=== PATIENT | female | born 1945 | race American Indian/Alaskan Native ===

== ENCOUNTER 2017-02-09 14:56 | Outpatient (CLI) | payer MEDICARE, OTHER | END 2017-02-09 14:57 | disposition home or self-care (01) | LOC: LABHHL 14:56 | PROVIDERS: ATTEND Surgery | DX: R92.0 Mammographic microcalcification found on diagnostic imaging of breast (principal) | CPT/HCPCS: 88305; 88361 ==

== ENCOUNTER 2017-02-13 17:42 | Outpatient (CLI) | payer MEDICARE | END 2017-02-13 17:43 | disposition home or self-care (01) | LOC: LAB 17:42 | PROVIDERS: ATTEND Surgery | DX: N63 Unspecified lump in breast (principal) | CPT/HCPCS: 88305 ==

== ENCOUNTER 2017-02-16 13:07 | Outpatient (CLI) | payer MEDICARE ==
--- NOTE | 2017-02-20 11:50 | Magnetic Resonance Report ---
BILATERAL BREAST MRI WITHOUT AND WITH CONTRAST: 02/16/17 13:07:00 CLINICAL: Status post recent left stereotactic biopsy for calcifications and newly diagnosed left breast cancer. COMPARISON:02/08/17. TECHNIQUE: Axial 1.0-mm T1 without, axial high resolution 2.0-mm T2 and axial 1.0-mm dynamic Vibrant high-resolution postcontrast T1 fat saturation sequences on a 1.5 Thea magnet. The examination was performed with an 8 channel dedicated [employer]in[employer] breast coil. Post processing with CAD and subtraction was performed on an [employer] workstation. 20 cc of Multihance was injected without incident for the contrast portion of the exam. Consent was obtained prior to the administration of the contrast. FINDINGS: Right: Mild background parenchymal enhancement. No mass or suspicious enhancement. No suspicious lymph nodes. Left: Mild background parenchymal enhancement. No mass or suspicious enhancement. A retroareolar biopsy clip is located approximately 3 cm from the nipple and correlates with the recent stereotactic biopsy. A suspicious level I axillary lymph node has no central fat and measures 1.2 x 1.1 cm. There appears to be a biopsy clip at the margin. IMPRESSION: 1. A suspicious level I left axillary lymph node and otherwise negative left breast. 2. Negative right breast. RIGHT BI-RADS 1 -- Negative LEFT BI-RADS 6 -- Known Cancer
== END 2017-02-16 13:08 | disposition home or self-care (01) ==
LOC: SPVIMAG 13:07
PROVIDERS: ATTEND Surgery
DX: C50.412 Malignant neoplasm of upper-outer quadrant of left female breast (principal); N64.4 Mastodynia; R92.1 Mammographic calcification found on diagnostic imaging of breast; R60.0 Localized edema
CPT/HCPCS: A9577; C8908; 77059

== ENCOUNTER 2017-03-01 13:09 | Outpatient (CLI) | payer MEDICARE ==
--- NOTE | 2017-03-02 08:50 | PET Report ---
PET SB TO MT INITIAL: HISTORY: Staging of left breast cancer. TECHNIQUE: 15.0 millicuries F-18 FDG was administered intravenously. Noncontrast CT images and PET images were obtained from the skull base to the proximal thighs. Fused images were reviewed on a workstation. The patient's blood glucose level measured 99. COMPARISON: None. FINDINGS: BRAIN: physiologic FDG uptake in the imaged brain. NECK: physiologic FDG uptake. CHEST WALL: There is asymmetric breast tissue with the left side demonstrating increased stromal components. An approximate 2.7 cm masslike lesion in the lateral left breast is identified. Max SUV in the left breast measures up to 4.1. There is diffuse left breast skin thickening as well with max SUV measuring 3.8. MEDIASTINUM: There are multiple borderline to mildly enlarged lymph nodes measuring up to 1.8 cm within the mediastinum. A right paratracheal lymph node demonstrates a max SUV of 6.6. 2 subcarinal lymph nodes demonstrate max SUV values of 5.6 and 6.4. A right hilar lymph node demonstrates a max SUV of 7.3. LUNGS: physiologic FDG uptake. PLEURA/PERICARDIUM: physiologic FDG uptake. THORACIC LYMPH NODES: Approximately 4 or 5 borderline left axillary lymph nodes demonstrate max SUV values up to 3.1. A solitary right axillary lymph node demonstrates a max SUV of 4.1. HEPATOBILIARY: physiologic FDG uptake. Mean liver SUV measures 4.4. PANCREAS: physiologic FDG uptake. SPLEEN: physiologic FDG uptake. ADRENAL GLANDS: physiologic FDG uptake. KIDNEYS/RENAL COLLECTING SYSTEMS: physiologic FDG uptake. BOWEL/MESENTERY: physiologic FDG uptake. PELVIC VISCERA: physiologic FDG uptake. ABDOMINAL/PELVIC LYMPH NODES: physiologic FDG uptake. MUSCULOSKELETAL: physiologic FDG uptake. IMPRESSION: There is relatively diffuse increased uptake throughout the left breast and diffuse left skin thickening consistent with primary left breast cancer. This may represent inflammatory breast cancer. Metastasis to multiple thoracic lymph nodes is demonstrated including the right paratracheal chain, subcarinal chain, right hilar chain and bilateral axillary chains as outlined above. There is no abnormal activity identified beneath the diaphragm.
== END 2017-03-01 13:10 | disposition home or self-care (01) ==
LOC: PET 13:09
PROVIDERS: ATTEND Internal Medicine Hematology & Oncology
DX: C77.1 Secondary and unspecified malignant neoplasm of intrathoracic lymph nodes (principal); C50.412 Malignant neoplasm of upper-outer quadrant of left female breast; R59.9 Enlarged lymph nodes, unspecified
CPT/HCPCS: 78815; 82962; A9552

== ENCOUNTER 2017-05-01 08:32 | Outpatient (CLI) | payer MEDICARE | END 2017-05-01 08:33 | disposition home or self-care (01) | LOC: ECHO 08:32 | PROVIDERS: ATTEND Internal Medicine Hematology & Oncology | DX: I07.1 Rheumatic tricuspid insufficiency (principal); C50.912 Malignant neoplasm of unspecified site of left female breast | CPT/HCPCS: 93306 ==

== ENCOUNTER 2017-10-25 09:40 | Outpatient (CLI) | payer MEDICARE ==
--- NOTE | 2017-10-26 10:05 | PET Report ---
PET SB TO MT SUBSEQUENT: HISTORY: Restaging of left breast cancer. TECHNIQUE: 14.8 millicuries F-18 FDG was administered intravenously. Noncontrast CT images and PET images were obtained from the skull base to the proximal thighs. Fused images were reviewed on a workstation. The patient's blood glucose level measured 101. COMPARISON: 03/01/17. FINDINGS: BRAIN: physiologic FDG uptake in the imaged brain. NECK: physiologic FDG uptake. CHEST WALL: There is decreased skin thickening and stromal prominence at the left lung since the previous exam. No discrete mass on today's exam. Max SUV in the left breast measures 2.4 as opposed to 4.1 on the previous exam MEDIASTINUM: physiologic FDG uptake. LUNGS: physiologic FDG uptake. PLEURA/PERICARDIUM: physiologic FDG uptake. THORACIC LYMPH NODES: physiologic FDG uptake. Hypermetabolic left axillary lymph nodes have resolved. HEPATOBILIARY: physiologic FDG uptake. Mean liver SUV measures 3.9 as opposed to 4.3 on the previous exam. PANCREAS: physiologic FDG uptake. SPLEEN: physiologic FDG uptake. ADRENAL GLANDS: physiologic FDG uptake. KIDNEYS/RENAL COLLECTING SYSTEMS: physiologic FDG uptake. BOWEL/MESENTERY: physiologic FDG uptake. PELVIC VISCERA: physiologic FDG uptake. ABDOMINAL/PELVIC LYMPH NODES: physiologic FDG uptake. MUSCULOSKELETAL: physiologic FDG uptake. IMPRESSION: A positive response to therapy is demonstrated since 03/01/17 exam. Near-complete resolution of the left breast abnormalities with minimal left breast skin thickening remaining. No evidence for hypermetabolic visceral mass or lymph nodes. Essentially negative PET CT.
== END 2017-10-25 09:41 | disposition home or self-care (01) ==
LOC: PET 09:40
PROVIDERS: ATTEND Internal Medicine Hematology & Oncology
DX: C50.912 Malignant neoplasm of unspecified site of left female breast (principal); Z79.899 Other long term (current) drug therapy
CPT/HCPCS: 78815; 82962; A9552

== ENCOUNTER 2017-11-13 08:25 | Outpatient (CLI) | payer MEDICARE ==
--- NOTE | 2017-11-13 15:06 | Ultrasound Report ---
LEFT DIGITAL DIAGNOSTIC MAMMOGRAM with CAD and LEFT BREAST ULTRASOUND: 11/13/17 08:25:00 CLINICAL: Inflammatory left breast cancer status post chemotherapy. COMPARISON:02/08/17 FINDINGS: The overall density of the breast has decreased compared to the prior exam and there is no distinct mass at a retroareolar biopsy clip. Moderate skin thickening of the breast persists.No architectural distortion or suspicious calcifications. Ultrasound of left breast (including all four quadrants and the retroareolar area) was performed and demonstrated normal fibroglandular and fatty structures. No mass, cyst or shadowing. IMPRESSION: At least a partial mammographic response to chemotherapy with a negative ultrasound. BI-RADS CATEGORY: 6--Known Cancer ACR BI-RADS MAMMOGRAPHIC CODES: 0 = Needs additional imaging evaluation; 1 = Negative; 2 = Benign; 3 = Probably benign; 4 = Suspicious; 5 = Malignant; 6 = Known biopsy-proven malignancy COMMENT: 1. Dense breast tissue, i.e., adenosis, fibrocystic changes, etc., may obscure an underlying neoplasm. 2. Approximately 10% of cancers are not detected with mammography. 3. A negative mammography report should not delay biopsy if a clinically suspicious mass is present. COMMENT: Patient follow-up letters are generated by our [employer] application.
== END 2017-11-13 08:26 | disposition home or self-care (01) ==
LOC: SPVWC 08:25
PROVIDERS: ATTEND Surgery
DX: C50.312 Malignant neoplasm of lower-inner quadrant of left female breast (principal); R92.8 Other abnormal and inconclusive findings on diagnostic imaging of breast

== ENCOUNTER 2017-11-21 08:51 | Observation (INO) | payer MEDICARE ==
--- NOTE | 2017-11-16 11:57 | Anesthesia Consultation ---
Anesthesia Consult and Med Hx Date of service: 11/16/17 - Airway Anesthetic Teeth Evaluation: Good (upper and lower) ROM Head & Neck: Adequate (but decreased.) Mental/Hyoid Distance: Adequate Mallampati Class: Class II Intubation Access Assessment: Probably Good - Pulmonary Exam CTA: Yes - Cardiac Exam Cardiac Exam: RRR - Pre-Operative Health Status ASA Pre-Surgery Classification: ASA3 Proposed Anesthetic Plan: General - Pre-Anesthesia Comment Pre-Anesthesia Comments: h/o L THR, back surgery, R rotator cuff surgery. - Pulmonary Hx Smoking: No - Cardiovascular System Hx Hypertension: No - Central Nervous System Hx Psychiatric Problems: No - Other Systems Hx Alcohol Use: No Hx Substance Use: No Hx Cancer: Yes (B/l breast CA, nausea with chemo.) - Additional Comments Anesthesia Medical History Comments: EF went to 40% after chemo with adriamycin , was 50%before. Able to climb >2FOS, walks around her block regularly. Port still in place.
[2017-11-16 12:03] LABS: Basophils # (Auto) 0.1 K/mm3 (0.0-0.1); Basophils % (Auto) 1.8 % (0.0-1.8); Eosinophils # (Auto) 0.1 K/mm3 (0.0-0.4); Hematocrit 33.5 % (30.3-42.9); Lymphocytes # (Auto) 0.9 K/mm3 (1.2-5.4); Lymphocytes % (Auto) 20.7 % (13.4-35.0); Mean Corpuscular HGB Conc 33 % (30-34); Mean Corpuscular Hemoglobin 28 pg (28-32); Mean Corpuscular Volume 85 fl (79-97); Monocytes # (Auto) 0.4 K/mm3 (0.0-0.8); Monocytes % (Auto) 9.8 % (0.0-7.3); Platelet Count 397 K/mm3 (140-440); Red Blood Count 3.93 M/mm3 (3.65-5.03); Red Cell Distribution Width 16.4 % (13.2-15.2)
--- NOTE | 2017-11-16 14:21 | XRay Report ---
CHEST 2 VIEWS INDICATION: Presurgical evaluation. COMPARISON: None similar. FINDINGS: PA and lateral chest radiographs demonstrate normal cardiomediastinal silhouette. Well-expanded lungs with a 5 mm density projecting over the left sixth rib posteriorly, corresponding to a calcified granuloma on 10/25/2017 PET/CT. Right chest port tip along the distal SVC. Demineralized bones with multilevel spinal degenerative changes. CONCLUSION: No acute chest process with few incidental findings, as above. Thank you for the opportunity to participate in this patient's care.
[2017-11-16 14:51] LABS: Alanine Aminotransferase 14 units/L (7-56); Albumin 4.1 g/dL (3.9-5); BUN/Creatinine Ratio 18; Blood Urea Nitrogen 9 mg/dL (7-17); Calcium 9.3 mg/dL (8.4-10.2); Hemolysis Index 10
[2017-11-21] MEDS ORDERED: VANCOMYCIN/NS 1 GM/250 ML 1 GM/250 ML BAG IV SCH (09:29)
[2017-11-21] MEDS ORDERED: VANCOMYCIN/0.45 NS 1 GM/250 ML 1 GM/250 ML BAG IV NR (10:00)
--- NOTE | 2017-11-21 10:03 | Anesthesia Day of Surgery ---
Anesthesia Day of Surgery - Day of Surgery Patient Examined: Yes Patient H&P Reviewed: Yes Patient is NPO: Yes
[2017-11-21] MEDS ORDERED: DILAUDID IV PRN (10:06)
[2017-11-21] MEDS ORDERED: ZOFRAN IV PRN ×2 (10:06→15:45)
[2017-11-21] MEDS ORDERED: SUBLIMAZE IV NR (10:06)
[2017-11-21] MEDS ORDERED: XYLOCAINE MPF 2% ONE (10:09)
[2017-11-21] MEDS ORDERED: DIPRIVAN 10 MG/ML IV ONE (10:09)
[2017-11-21] MEDS ORDERED: MARCAINE 0.25% INFILTRATI ONE (10:10)
[2017-11-21] MEDS ORDERED: ZEMURON IV ONE ×2 (10:11→13:25)
[2017-11-21] MEDS ORDERED: NACL 0.9% 1000 ML 1,000 ML ONE (10:13)
[2017-11-21] MEDS ORDERED: VERSED IV NR (11:00)
[2017-11-21] MEDS ORDERED: LACTATED RINGERS 1,000 ML IV SCH ×2 (11:00→16:00)
[2017-11-21] MEDS ORDERED: SUBLIMAZE ONE (12:16)
[2017-11-21] MEDS ORDERED: NACL IRRIGATION ONE (12:22)
[2017-11-21] MEDS ORDERED: WATER FOR IRRIG STERILE IR ONE (12:22)
[2017-11-21] MEDS ORDERED: METHYLENE BLUE IRRIGATION ONE (12:22)
--- NOTE | 2017-11-21 12:28 | Operative Report ---
Operative Report Operative Report: Date of Service: November 21, 2017 Preoperative diagnosis: Left breast cancer of the central breast Postoperative diagnosis: Same Procedure: Right total mastectomy and left total mastectomy with axillary den sampling Surgeon: Cheryl Rizvi M.D. Asst.: Holly Barajas MD Anesthesia: Gen. Findings: Left breast clip present within left total mastectomy. Bilateral axillary lymph nodes sent for permanent processing to pathology. Specimen: Bilateral mastectomy and bilateral axillary lymph nodes Complications: None Drains: 2 19 Fr Estimated blood loss: Minimal Disposition: PACU in good condition Indications for operative procedure: This is a 72-year-old lady with stage IV left breast cancer of the central breast, IDCA [id number] triple negative. Recommendations were to proceed with left mastectomy to decrease disease burden given good response to neoadjuvant chemotherapy with follow-up PET scan with negative findings for metastatic disease and previous bilateral axillary chain lymphadenopathy , subcarinal lymphadenopathy and hilar lymphadenopathy with resolution. Patient wished to proceed with a bilateral masectomy. Recommendations were to remove any suspicious axillary lymph nodes given patient with known Stage IV breast cancer. Procedure in detail: Anesthesia placed a bilateral pectoral muscle block prior to going to the operating room. The patient was taken to the operating room and was placed supine. Gen. anesthesia was administered. The left nipple was injected with radioisotope. Bilateral breast were prepped and draped in the normal postoperative fashion. Timeout was performed. Typical mastectomy incision markings were made with left mastectomy marking to include scarred ecchymotic tissue. The left nipple was injected with radioisotope and methylene blue dye 1cc mixed with 1cc of saline. Attention was taken towards the right breast first. A skin incision was made with a 10 blade knife and dissection taken down to the subcutaneous tissues. First began raising of the superior flap to the level of the clavicle superiorly and posteriorly to the pectoralis muscle. Followed by raising of the medial flap to the level of the sternum and posteriorly to the pectoralis muscle. Followed by raising of the lateral flap to the level of the latissimus dorsi muscle and taken down posteriorly. Followed by raising of the inferior flap to the level of the inframammary fold taken posterior to the pectoralis muscle. The mastectomy/breast was removed from the pectoralis muscle without incident. The specimen was appropriately marked and sent to pathology. At least 3 lymph nodes were noted superficially of the axilla that were removed and sent for permanent processing given some suspicion. Hemostasis was obtained with the bovie cautery. A 19 Czech LAVON drain was placed. The subcutaneous tissues were approximated and closed using interrupted 3-0 Vicryl. The skin was then closed using a running 4-0 Monocryl followed by skin affix. Attention was taken towards the left breast. A gamma probe was inserted into the axilla to identify the sentinel lymph node location with miminal uptake noted. A skin incision was made with a 10 blade knife and dissection taken down to the subcutaneous tissues. First began raising of the superior flap to the level of the clavicle superiorly and posteriorly to the pectoralis muscle. Followed by raising of the medial flap to the level of the sternum and posteriorly to the pectoralis muscle. Followed by raising of the lateral flap to the level of the latissimus dorsi muscle and taken down posteriorly. The gamma probe was inserted into the axilla with minimal uptake noted. The axilla was examined with one suspicous node noted and sent for permanent processing. Then proceeded with raising of the inferior flap to the level of the inframammary fold taken posterior to the pectoralis muscle. The mastectomy/ breast was removed from the pectoralis muscle without incident. The specimen was appropriately marked and sent to radiology with findings of 1 breast clip present and sent to pathology. Hemostasis was obtained with the bovie cautery. A 19 Czech LAVON drain was placed. The subcutaneous tissues were approximated and closed using interrupted 3-0 Vicryl. The skin was then closed using a running 4-0 Monocryl followed by skin affix. She was awaken from anesthesia without any complications and transported to PACU in good condition.
[2017-11-21] MEDS ORDERED: METHYLENE BLUE ONE (12:30)
--- NOTE | 2017-11-21 12:30 | Short Stay Summary ---
Short Stay Documentation Date of service: 11/21/17 - History H&P: obtained from office - Allergies and Medications Current Medications: Allergies codeine Adverse Reaction (Verified 11/15/17 16:51) Vomiting,NAUSEA Penicillins Adverse Reaction (Verified 11/15/17 16:51) Hives Home Medications Medication Instructions Recorded Confirmed Last Taken Type No Known Home Medications [No 11/15/17 11/15/17 Unknown History Reported Home Medications] Active Medications Vancomycin HCl (Vancomycin/0.45 Ns 1 Gm/250 Ml) 1 gm in 250 mls @ 167.007 mls/ hr IV PREOP NR Stop: 11/21/17 13:00 Last Admin: 11/21/17 11:25 Dose: 167.007 mls/hr Lactated Ringer's (Lactated Ringers) 1,000 mls @ 42 mls/hr IV DIRECT FAWAD Midazolam HCl (Versed) 2 mg IV PREOP NR Stop: 11/21/17 23:59 Last Admin: 11/21/17 10:18 Dose: 2 mg - Brief post op/procedure progress note Date of procedure: 11/21/17 Pre-op diagnosis: Left breast cancer of the central breast Post-op diagnosis: same Procedure: Bilateral mastectomy and bilateral axillary lymph node excisional biopsy Anesthesia: GETA Findings: bilateral mastectomy, bilateral axillary lymph node excisional biopsy Surgeon: CHINO PAGAN Service Line Bus Cleaner: MARISELA MEYERS Estimated blood loss: minimal Pathology: list (bilateral mastectomy, bilateral axillary ln) Specimen disposition: to lab Condition: stable - Disposition Condition at discharge: Good Disposition: [id number]/TX-[id number] SHRT-TRM GEN HOSP IP Short Stay Discharge Plan Activity: other (no heavy lifting) Diet: regular Wound: other (may shower in 48 hours; no baths, pools or lakes) Follow up with: BHAVYA BALDERAS JR, MD [Primary Care Provider] - 7 Days CHINO PAGAN MD [Staff Physician] - 7 Days Prescriptions: traMADol [Ultram 50 MG tab] 50 mg PO Q6HR PRN #30 tablet PRN Reason: Pain
[2017-11-21] MEDS ORDERED: NEO SYNEPHRINE ONE (13:26)
[2017-11-21] MEDS ORDERED: ZOFRAN ONE (13:26)
[2017-11-21] MEDS ORDERED: NACL P/F VIAL (10 ML) 20 ML ONE (13:27)
[2017-11-21] MEDS ORDERED: BENADRYL PO PRN (15:45)
[2017-11-21] MEDS ORDERED: REGLAN PO PRN (15:45)
[2017-11-21] MEDS ORDERED: SODIUM CHLORIDE FLUSH SYRINGE 10 ML IV PRN (15:45)
[2017-11-21] MEDS ORDERED: TYLENOL PO PRN (15:45)
[2017-11-21] MEDS ORDERED: DILAUDID PO PRN (15:45)
[2017-11-21] MEDS ORDERED: MORPHINE IV PRN ×2 (15:48→18:32)
--- NOTE | 2017-11-21 16:34 | Mammography Report ---
SPECIMEN RADIOGRAPH RIGHT BREAST: 11/21/17 08:51:00 CLINICAL: Mastectomy specimen FINDINGS: A single biopsy clip is identified within the specimen. More detail, please refer to the operative report.
[2017-11-21] MEDS ORDERED: COLACE PO SCH (22:00)
--- NOTE | 2017-11-22 08:16 | Progress Note ---
Assessment and Plan This is a 72 year old lady with Stage IV left breast cancer, POD#1 bilateral mastectomy with bilateral axillary lymph node excisional biopsy. 1. Pain in good control. 2. Bilateral chest incisions healing well. 3. LAVON drain education. 4. OOB to hallway. 5. D/C planning for today. Subjective Date of service: 11/22/17 Principal diagnosis: Stage IV left breast cancer Interval history: POD#1 bilateral mastectomy and bilateral axillary lymph node excisional biopsy. No acute events overnight. Pain well controlled. Objective - Constitutional Vitals: Vital Signs - 12hr 11/21/17 11/21/17 11/22/17 22:50 22:58 00:00 Temperature 98.0 F Pulse Rate 89 Respiratory 18 20 Rate Respiratory 18 Rate [Bilateral Upper Chest] Blood Pressure 114/50 [Left] 11/22/17 04:00 Temperature 98.1 F Pulse Rate 90 Respiratory 20 Rate Respiratory Rate [Bilateral Upper Chest] Blood Pressure 104/50 [Left] General appearance: Present: no acute distress - EENT Eyes: PERRL, EOM intact ENT: hearing intact, clear oral mucosa Ears: bilateral: normal - Neck Neck: supple - Respiratory Respiratory effort: normal Respiratory: bilateral: CTA - Breasts Breasts: other (bilateral incisions healing well; skin well perfused; LAVON drains to bulb suction) - Cardiovascular Rhythm: regular Extremities: no ischemia, pulses intact, pulses symmetrical, No edema, normal temperature, normal color, Full ROM - Gastrointestinal General gastrointestinal: Present: soft, non-tender, non-distended Rectal Exam: deferred - Genitourinary Female genitourinary: deferred - Integumentary Integumentary: clear, warm, dry - Musculoskeletal Musculoskeletal: strength equal bilaterally - Neurologic Neurologic: CNII-XII intact, focal deficits, moves all extremities - Psychiatric Psychiatric: appropriate mood/affect, intact judgment & insight, memory intact, cooperative - Labs CBC & Chem 7: 11/16/17 10:40 11/16/17 10:40
[2017-11-22 11:26] VITALS: BP 125/59
== END 2017-11-22 12:26 | disposition short-term general hospital (02) ==
LOC: OR 08:51 → OB 15:45
PROVIDERS: ADMIT Surgery; ATTEND Surgery
DX: C50.112 Malignant neoplasm of central portion of left female breast (principal); C50.412 Malignant neoplasm of upper-outer quadrant of left female breast; C50.612 Malignant neoplasm of axillary tail of left female breast; C50.012 Malignant neoplasm of nipple and areola, left female breast; C50.812 Malignant neoplasm of overlapping sites of left female breast; Z92.21 Personal history of antineoplastic chemotherapy
CPT/HCPCS: 19303; 36415; 64450; 71046; 76098; 78801; 80053; 85025; 88307; 93005; 93010; 96365; 96375; A9541; G0378; J2250; J2270; J2370; J2405; J2704; J3010; J3370; J7030; Q9968; 88309

== ENCOUNTER 2018-01-11 07:38 | Outpatient (CLI) | payer MEDICARE ==
[2018-01-11] MEDS ORDERED: NACL ONE (07:53)
[2018-01-11 08:21] LABS: Blood Urea Nitrogen 9 mg/dL (7-17)
--- NOTE | 2018-01-11 11:16 | Cat Scan Report ---
FINAL REPORT EXAM: CT ANGIO CHEST HISTORY: SHORTNESS OF BREATH TECHNIQUE: CT angiography of the chest was performed. 100 cc Omnipaque 350 IV was administered. Coronal and sagittal reformatted images were obtained. PRIORS: None. FINDINGS: There is no aortic dissection seen. There are no filling defects seen within the pulmonary arterial circulation to suggest pulmonary embolism. There is right lower lobe infiltrate which is worrisome for pneumonia. There is also right lower lobe bronchial wall thickening. There is some mild left lower lobe bronchial wall thickening and minimal left basilar airspace disease. There is no pneumothorax seen. There are no pleural effusions seen. There is a borderline enlarged left hilar lymph node measuring 12 mm. There is a left AP window lymph node with punctate calcifications seen measuring 17 x 10 mm. There are several hepatic cysts seen in visualized upper abdomen. IMPRESSION: There is no pulmonary embolism or aortic dissection seen. Right lower lobe infiltrate is worrisome for pneumonia. There is also some lower lobe bronchial wall thickening which is bilateral, right greater than left. Minimal left basilar airspace disease is probably atelectasis. Borderline left hilar lymph node in AP window lymph node.
== END 2018-01-11 07:39 | disposition home or self-care (01) ==
LOC: CT 07:38
PROVIDERS: ATTEND Internal Medicine Cardiovascular Disease
DX: R06.02 Shortness of breath (principal); R91.8 Other nonspecific abnormal finding of lung field; K76.89 Other specified diseases of liver
CPT/HCPCS: 36415; 71275; 82565; 84520; Q9967

== ENCOUNTER 2018-01-16 14:19 | Inpatient (IN) | payer MEDICARE ==
[2018-01-16] MEDS ORDERED: NACL 0.9% 1000 ML 1,000 ML IV ONE (15:53)
[2018-01-16 16:24] LABS: Basophils % (Auto) 0.2 % (0.0-1.8); Eosinophils # (Auto) 0.1 K/mm3 (0.0-0.4); Eosinophils % (Auto) 0.7 % (0.0-4.3); Hematocrit 40.3 % (30.3-42.9); Lymphocytes # (Auto) 0.9 K/mm3 (1.2-5.4); Lymphocytes % (Auto) 10.4 % (13.4-35.0); Mean Corpuscular HGB Conc 32 % (30-34); Mean Corpuscular Volume 78 fl (79-97); Monocytes # (Auto) 0.5 K/mm3 (0.0-0.8); Platelet Count 426 K/mm3 (140-440); Red Blood Count 5.16 M/mm3 (3.65-5.03); Red Cell Distribution Width 15.5 % (13.2-15.2)
[2018-01-16 16:25] LABS: Mean Corpuscular Hemoglobin 25 pg (28-32)
[2018-01-16] MEDS ORDERED: LEVAQUIN 750MG/150ML 750 MG/150 ML BAG IV ONE (16:29)
[2018-01-16] MEDS ORDERED: ATROVENT IH ONE (16:29)
[2018-01-16] MEDS ORDERED: PROVENTIL IH ONE (16:29)
[2018-01-16 16:35] LABS: INR 0.97 (0.87-1.13)
[2018-01-16 16:36] LABS: Partial Thromboplastin Time 22.4 Sec. (24.2-36.6)
[2018-01-16 16:38] LABS: Creatine Kinase MB 2.9 ng/mL (0.0-4.0)
[2018-01-16 16:39] LABS: Alanine Aminotransferase 21 units/L (7-56); Albumin 3.9 g/dL (3.9-5); BUN/Creatinine Ratio 40; Blood Urea Nitrogen 20 mg/dL (7-17); Calcium 9.9 mg/dL (8.4-10.2); Hemolysis Index 10
[2018-01-16] MEDS ORDERED: TESSALON PERLES PO ONE (16:39)
--- NOTE | 2018-01-16 16:56 | Emergency Department Report ---
ED Shortness of Breath HPI - General Chief Complaint: Dyspnea/Respdistress Stated Complaint: SOB Time Seen by Provider: 01/16/18 15:52 Source: patient Mode of arrival: Wheelchair Limitations: No Limitations - History of Present Illness Initial Comments: 72-year-old female with a history of breast cancer treated with chemotherapy in the past and advised lateral mastectomy in October presents to the hospital complaining of a cough and shortness of breath 3 weeks. Patient sent for Dr. Lira's office with tachypnea and tachycardia which was apparent in triage. Patient complains of intermittent wheezing and shortness of breath and cough productive of white sputum. No fever reported. Patient had outpatient CT angiogram chest January 11 showing no pulmonary embolism or dissection. Positive right lower lobe infiltrate worrisome for pneumonia. Also lower lobe bronchial wall thickening which is bilateral, right greater than left. Minimal left basilar airspace disease is probably atelectasis. Patient has not been started on any antibiotics. Denies any COPD or asthma and has no current treatment with steroids or bronchial dilators. Patient is pretty much in remission from her breast cancer but has been scheduled for radiation therapy. Pain = 0 - Related Data Previous Rx's Medication Instructions Recorded Last Taken Type traMADol [Ultram 50 MG tab] 50 mg PO Q6HR PRN #30 tablet 11/21/17 Unknown Rx Allergies Allergy/AdvReac Type Severity Reaction Status Date / Time codeine AdvReac Vomiting,NA Verified 01/16/18 14:27 USEA Penicillins AdvReac Hives Verified 01/16/18 14:27 ED Review of Systems ROS: Stated complaint: SOB Other details as noted in HPI Comment: All other systems reviewed and negative ED Past Medical Hx - Past Medical History Hx Hypertension: No Hx Congestive Heart Failure: No Hx Diabetes: No Hx of Cancer: Yes (breast ca) Hx Asthma: No Hx COPD: No Hx HIV: No - Surgical History Additional Surgical History: thom mastectomy - Social History Smoking Status: Never Smoker Substance Use Type: None - Medications Home Medications: Home Medications Medication Instructions Recorded Confirmed Last Taken Type traMADol [Ultram 50 MG tab] 50 mg PO Q6HR PRN #30 tablet 11/21/17 Unknown Rx ED Physical Exam - General Limitations: No Limitations - Other Other exam information: General: No limitations, patient is alert in no acute distress Head exam: Atraumatic, normocephalic Eyes exam: Normal appearance ENT: Moist mucous membrane, normal oropharynx Neck exam: Normal inspection, full range of motion, no meningismus nontender Respiratory exam: Frequent cough, bilateral wheezing, mild tachypnea Cardiovascular: Mild tachycardia. Right upper chest port Abdomen: Soft, nondistended, and nontender, with normal bowel sounds, no rebound, or guarding Extremity: Full range of motion normal inspection no deformity, no calf tenderness or edema Back: Normal Inspection, full range of motion, no tenderness Neurologic: Alert, oriented x3, cranial nerves intact, no motor or sensory deficit Psychiatric: normal affect, normal mood Skin: Warm, dry, intact ED Course Vital Signs 01/16/18 14:27 Temperature 98.4 F Pulse Rate 133 H Respiratory 24 Rate Blood Pressure 133/62 O2 Sat by Pulse 97 Oximetry ED Medical Decision Making - Lab Data Result diagrams: 01/16/18 16:04 01/16/18 16:04 Lab Results 01/16/18 01/16/18 01/16/18 Range/Units 16:04 16:04 16:04 WBC 8.6 (4.5-11.0) K/mm3 RBC 5.16 H (3.65-5.03) M/mm3 Hgb 13.0 (10.1-14.3) gm/dl Hct 40.3 (30.3-42.9) % MCV 78 L (79-97) fl MCH 25 L (28-32) pg MCHC 32 (30-34) % RDW 15.5 H (13.2-15.2) % Plt Count 426 (140-440) K/mm3 Lymph % (Auto) 10.4 L (13.4-35.0) % [place] % (Auto) 6.0 (0.0-7.3) % Eos % (Auto) 0.7 (0.0-4.3) % Baso % (Auto) 0.2 (0.0-1.8) % Lymph # 0.9 L (1.2-5.4) K/mm3 [place] # 0.5 (0.0-0.8) K/mm3 Eos # 0.1 (0.0-0.4) K/mm3 Baso # 0.0 (0.0-0.1) K/mm3 Seg Neutrophils % 82.7 H (40.0-70.0) % Seg Neutrophils # 7.1 (1.8-7.7) K/mm3 PT (12.2-14.9) Sec. INR (0.87-1.13) APTT (24.2-36.6) Sec. VBG pH (7.320-7.420) Sodium 134 L (137-145) mmol/L Potassium 3.9 (3.6-5.0) mmol/L Chloride 89.7 L (98-107) mmol/L Carbon Dioxide 24 (22-30) mmol/L Anion Gap 24 mmol/L BUN 20 H (7-17) mg/dL Creatinine 0.5 L (0.7-1.2) mg/dL Estimated GFR > 60 ml/min BUN/Creatinine Ratio 40 % Glucose 99 (65-100) mg/dL Lactic Acid 1.50 (0.7-2.0) mmol/L Calcium 9.9 (8.4-10.2) mg/dL Total Bilirubin 0.50 (0.1-1.2) mg/dL AST 31 (5-40) units/L ALT 21 (7-56) units/L Alkaline Phosphatase 76 (35-129) units/L Total Creatine Kinase 127 (30-135) units/L CK-MB (CK-2) 2.9 (0.0-4.0) ng/mL CK-MB (CK-2) Rel Index 2.2 (0-4) Troponin T < 0.010 (0.00-0.029) ng/mL NT-Pro-B Natriuret Pep 59.64 (0-900) pg/mL Total Protein 7.6 (6.3-8.2) g/dL Albumin 3.9 (3.9-5) g/dL Albumin/Globulin Ratio 1.1 % 01/16/18 01/16/18 Range/Units 16:04 16:04 WBC (4.5-11.0) K/mm3 RBC (3.65-5.03) M/mm3 Hgb (10.1-14.3) gm/dl Hct (30.3-42.9) % MCV (79-97) fl MCH (28-32) pg MCHC (30-34) % RDW (13.2-15.2) % Plt Count (140-440) K/mm3 Lymph % (Auto) (13.4-35.0) % [place] % (Auto) (0.0-7.3) % Eos % (Auto) (0.0-4.3) % Baso % (Auto) (0.0-1.8) % Lymph # (1.2-5.4) K/mm3 [place] # (0.0-0.8) K/mm3 Eos # (0.0-0.4) K/mm3 Baso # (0.0-0.1) K/mm3 Seg Neutrophils % (40.0-70.0) % Seg Neutrophils # (1.8-7.7) K/mm3 PT 13.4 (12.2-14.9) Sec. INR 0.97 (0.87-1.13) APTT 22.4 L (24.2-36.6) Sec. VBG pH 7.416 (7.320-7.420) Sodium (137-145) mmol/L Potassium (3.6-5.0) mmol/L Chloride (98-107) mmol/L Carbon Dioxide (22-30) mmol/L Anion Gap mmol/L BUN (7-17) mg/dL Creatinine (0.7-1.2) mg/dL Estimated GFR ml/min BUN/Creatinine Ratio % Glucose (65-100) mg/dL Lactic Acid (0.7-2.0) mmol/L Calcium (8.4-10.2) mg/dL Total Bilirubin (0.1-1.2) mg/dL AST (5-40) units/L ALT (7-56) units/L Alkaline Phosphatase (35-129) units/L Total Creatine Kinase (30-135) units/L CK-MB (CK-2) (0.0-4.0) ng/mL CK-MB (CK-2) Rel Index (0-4) Troponin T (0.00-0.029) ng/mL NT-Pro-B Natriuret Pep (0-900) pg/mL Total Protein (6.3-8.2) g/dL Albumin (3.9-5) g/dL Albumin/Globulin Ratio % - EKG Data -: EKG Interpreted by Me (biatrial enlargement) EKG shows normal: sinus rhythm Rate: tachycardia (123) - Radiology Data Radiology results: report reviewed read by radiologist cxr: IMPRESSION: Dense right lower lobe infiltrate. Patchy left basal infiltrate. Right chemo port. Normal heart size. - Medical Decision Making Patient will be admitted to the hospital for treatment of pneumonia which appears to be bilateral basilar chest x-ray. Tessalon Perles, Levaquin, albuterol, Atrovent, and IV Solu-Medrol initiated. Recent outpatient CT angiogram negative for PE - Differential Diagnosis pneumonia, bronchitis, CHF, PE Critical Care Time: No Critical care attestation.: If time is entered above; I have spent that time in minutes in the direct care of this critically ill patient, excluding procedure time. ED Disposition Clinical Impression: Pneumonia, Wheezing, Breast cancer Disposition: DC-09 OP ADMIT IP TO THIS HOSP Is pt being admited?: Yes Condition: Stable Time of Disposition: 17:03 (Dr Soto/hosp)
--- NOTE | 2018-01-16 16:58 | XRay Report ---
FINAL REPORT EXAM: XR CHEST 1V AP HISTORY: sob TECHNIQUE: AP chest x-ray Comparison: CTA chest 01/11/2018 FINDINGS: Right IJ chemo port is present. Heart size is normal. Dense right basilar infiltrate shown on the previous CTA to be right lower lobe. Minimal infiltrate may be developing in the left lung base. There are calcified AP window lymph nodes. IMPRESSION: Dense right lower lobe infiltrate. Patchy left basal infiltrate. Right chemo port. Normal heart size.
--- NOTE | 2018-01-16 18:09 | History and Physical Report ---
History of Present Illness Chief complaint: I cant breathe History of present illness: 72 YO Female with Breast Cancer S/P Bilateral Mastectomy presents to ED for evaluation. Pt states that she has experienced productive cough and shortness of breath for the past 3 weeks, with worsening symptoms over the past 2 days. Pt seen and evaluated by PCP and was found to have evidence of Pneumonia, and was instructed to seek further care and evaluation at [facility]. Pt seen and evaluated in ED and found to have RLL Pneumonia as well as Acute Respiratory Failure. Pt initiated on Pneumonia protocol, as well as supplemental oxygen. Pt denies fever, chills, chest pain, BRBPR, unintentional weight loss, night sweats, hemoptysis. Pt admitted to medical floor. Past History Past Medical History: cancer Past Surgical History: mastectomy Social history: . denies: smoking, alcohol abuse, prescription drug abuse Family history: no significant family history (reviewed) Medications and Allergies Allergies Allergy/AdvReac Type Severity Reaction Status Date / Time Penicillins AdvReac Unknown Hives Verified 01/16/18 18:24 codeine AdvReac Vomiting,NA Verified 01/16/18 14:27 USEA Home Medications Medication Instructions Recorded Confirmed Last Taken Type No Known Home Medications [No 01/16/18 01/16/18 Unknown History Reported Home Medications] Review of Systems Constitutional: no weight loss, no weight gain, no fever, no chills Breasts: no change in shape, no swelling, no mass Cardiovascular: no chest pain, no orthopnea, no syncope, no lightheadedness Respiratory: cough with sputum, shortness of breath Gastrointestinal: no nausea, no vomiting, no diarrhea, no constipation Genitourinary Female: no pelvic pain, no flank pain, no menorrhagia, no dysuria , no urinary frequency, no urgency Rectal: no pain, no incontinence, no bleeding Musculoskeletal: no neck pain, no shooting arm pain, no arm numbness/tingling, no low back pain, no shooting leg pain, no leg numbness/tingling Integumentary: no rash, no pruritis, no redness, no sores, no wounds, no jaundice Neurological: no transient paralysis, no paralysis, no weakness, no parathesias , no numbness, no tingling, no seizures, no syncope Psychiatric: no anxiety, no memory loss, no change in sleep habits, no sleep disturbances, no insomnia, no hypersomnia, no change in appetite, no change in libido Endocrine: no cold intolerance, no heat intolerance, no polyphagia, no polyuria , no nocturia, no excessive sweating Hematologic/Lymphatic: no easy bruising, no easy bleeding, no lymphadenopathy, no lymphedema Allergic/Immunologic: no urticaria, no allergic rhinitis, no wheezing, no persistent infections, no anaphylaxis, no angioedema Exam - Constitutional Vitals: Temp Pulse Resp BP Pulse Ox 98.4 F 108 H 18 133/62 97 01/16/18 14:27 01/16/18 18:07 01/16/18 18:07 01/16/18 14:27 01/16/18 14:27 General appearance: Present: mild distress - EENT Eyes: Present: PERRL ENT: hearing intact, clear oral mucosa - Neck Neck: Present: supple, normal ROM - Respiratory Respiratory effort: normal Respiratory: right: diminished, rhonchi - Cardiovascular Heart Sounds: Present: S1 & S2. Absent: rub, click - Extremities Extremities: pulses symmetrical, No edema Peripheral Pulses: within normal limits - Abdominal General gastrointestinal: Present: soft, non-tender, non-distended, normal bowel sounds Female genitourinary: Present: normal - Integumentary Integumentary: Present: clear, warm, dry - Musculoskeletal Musculoskeletal: generalized weakness - Psychiatric Psychiatric: appropriate mood/affect, intact judgment & insight - Neurologic Neurologic: CNII-XII intact, moves all extremities Results - Labs CBC & Chem 7: 01/16/18 16:04 01/16/18 16:04 Labs: Abnormal lab results 01/16/18 01/16/18 01/16/18 Range/Units 16:04 16:04 16:04 RBC 5.16 H (3.65-5.03) M/mm3 MCV 78 L (79-97) fl MCH 25 L (28-32) pg RDW 15.5 H (13.2-15.2) % Lymph % (Auto) 10.4 L (13.4-35.0) % Lymph # 0.9 L (1.2-5.4) K/mm3 Seg Neutrophils % 82.7 H (40.0-70.0) % APTT 22.4 L (24.2-36.6) Sec. Sodium 134 L (137-145) mmol/L Chloride 89.7 L (98-107) mmol/L BUN 20 H (7-17) mg/dL Creatinine 0.5 L (0.7-1.2) mg/dL Assessment and Plan - Patient Problems (1) Pneumonia Current Visit: Yes Status: Acute Qualifiers: Laterality: right Lung location: lower lobe of lung Plan to address problem: IV Antibiotics, IVF resuscitation, monitor uop q shift, supplemental oxygen, blood cultures, aspiration precautions, nebulizer therapy, (2) Breast cancer Current Visit: Yes Status: Acute Qualifiers: Laterality: unspecified laterality Plan to address problem: Supportive care, outpatient Oncology F/U for radiation therapy (3) DVT prophylaxis Current Visit: Yes Status: Acute Plan to address problem: SCD to BLE while in bed
[2018-01-16] MEDS ORDERED: TYLENOL PO PRN (18:11)
[2018-01-16] MEDS ORDERED: SODIUM CHLORIDE FLUSH SYRINGE 10 ML IV PRN (18:11)
[2018-01-16] MEDS ORDERED: ZOFRAN IV PRN (18:11)
[2018-01-16] MEDS ORDERED: HYDROMET PO PRN (18:14)
[2018-01-17] MEDS: LEVAQUIN 750MG/150ML 750 MG/150 ML BAG IV SCH (08:59)
[2018-01-17] MEDS: SODIUM CHLORIDE FLUSH SYRINGE 10 ML IV SCH ×3 (09:00→21:20)
[2018-01-17] MEDS ORDERED: PROVENTIL IH SCH (09:00)
--- NOTE | 2018-01-17 09:09 | Progress Note ---
<DOUGLAS YODER - Last Filed: 01/17/18 15:41> Assessment and Plan Assessment and plan: 72 YO Female with Breast Cancer S/P Bilateral Mastectomy presents to ED for evaluation. Pt states that she has experienced productive cough and shortness of breath for the past 3 weeks, with worsening symptoms over the past 2 days. Pneumonia Continue IV Antibiotics, supplemental oxygen as needed, follow blood cultures, aspiration precautions, nebulizer therapy every 4 hours initiated Dysphagia GI consulted, swallow eval ordered Breast cancer Supportive care, outpatient Oncology F/U DVT prophylaxis SCD to BLE while in bed History Interval history: Patient seen and examined. During my exam she's continuously coughing, very weak cough, productive of clear phlegm. She states that whenever she tries to swallow it triggers her cough. She currently tolerating liquids. I reviewed her labs and nursing notes. Hospitalist Physical - Physical exam Narrative exam: General appearance: Present: Mild distress, well-nourished - EENT Eyes: Present: PERRL, EOM intact ENT: hearing intact, clear oral mucosa - Neck Present: supple, normal ROM - Respiratory Respiratory effort: normal Respiratory: bilateral: Wheezes and rhonchi - Cardiovascular Rhythm: regular Heart Sounds: Present: S1 & S2 - Extremities Extremities: no ischemia, No edema - Abdominal General gastrointestinal: soft, non-tender, non-distended - Integumentary Integumentary: Present: clear, warm, dry - Psychiatric Psychiatric: appropriate mood/affect, intact judgment & insight, cooperative - Neurologic Neurologic: CNII-XII intact, moves all extremities - Constitutional Vitals: Temp Pulse Resp BP Pulse Ox 97.7 F 96 H 16 126/70 98 01/17/18 07:26 01/17/18 08:39 01/17/18 08:39 01/17/18 07:26 01/17/18 09:00 Results - Labs CBC & Chem 7: 01/16/18 16:04 01/16/18 16:04 Labs: Laboratory Last Values WBC 8.6 K/mm3 (4.5-11.0) 01/16/18 16:04 RBC 5.16 M/mm3 (3.65-5.03) H 01/16/18 16:04 Hgb 13.0 gm/dl (10.1-14.3) 01/16/18 16:04 Hct 40.3 % (30.3-42.9) 01/16/18 16:04 MCV 78 fl (79-97) L 01/16/18 16:04 MCH 25 pg (28-32) L 01/16/18 16:04 MCHC 32 % (30-34) 01/16/18 16:04 RDW 15.5 % (13.2-15.2) H 01/16/18 16:04 Plt Count 426 K/mm3 (140-440) 01/16/18 16:04 Lymph % (Auto) 10.4 % (13.4-35.0) L 01/16/18 16:04 [place] % (Auto) 6.0 % (0.0-7.3) 01/16/18 16:04 Eos % (Auto) 0.7 % (0.0-4.3) 01/16/18 16:04 Baso % (Auto) 0.2 % (0.0-1.8) 01/16/18 16:04 Lymph # 0.9 K/mm3 (1.2-5.4) L 01/16/18 16:04 [place] # 0.5 K/mm3 (0.0-0.8) 01/16/18 16:04 Eos # 0.1 K/mm3 (0.0-0.4) 01/16/18 16:04 Baso # 0.0 K/mm3 (0.0-0.1) 01/16/18 16:04 Seg Neutrophils % 82.7 % (40.0-70.0) H 01/16/18 16:04 Seg Neutrophils # 7.1 K/mm3 (1.8-7.7) 01/16/18 16:04 PT 13.4 Sec. (12.2-14.9) 01/16/18 16:04 INR 0.97 (0.87-1.13) 01/16/18 16:04 APTT 22.4 Sec. (24.2-36.6) L 01/16/18 16:04 VBG pH 7.416 (7.320-7.420) 01/16/18 16:04 Sodium 134 mmol/L (137-145) L 01/16/18 16:04 Potassium 3.9 mmol/L (3.6-5.0) 01/16/18 16:04 Chloride 89.7 mmol/L (98-107) L 01/16/18 16:04 Carbon Dioxide 24 mmol/L (22-30) 01/16/18 16:04 Anion Gap 24 mmol/L 01/16/18 16:04 BUN 20 mg/dL (7-17) H 01/16/18 16:04 Creatinine 0.5 mg/dL (0.7-1.2) L 01/16/18 16:04 Estimated GFR > 60 ml/min 01/16/18 16:04 BUN/Creatinine Ratio 40 % 01/16/18 16:04 Glucose 99 mg/dL (65-100) 01/16/18 16:04 Lactic Acid 1.50 mmol/L (0.7-2.0) 01/16/18 16:04 Calcium 9.9 mg/dL (8.4-10.2) 01/16/18 16:04 Total Bilirubin 0.50 mg/dL (0.1-1.2) 01/16/18 16:04 AST 31 units/L (5-40) 01/16/18 16:04 ALT 21 units/L (7-56) 01/16/18 16:04 Alkaline Phosphatase 76 units/L (35-129) 01/16/18 16:04 Total Creatine Kinase 127 units/L (30-135) 01/16/18 16:04 CK-MB (CK-2) 2.9 ng/mL (0.0-4.0) 01/16/18 16:04 CK-MB (CK-2) Rel Index 2.2 (0-4) 01/16/18 16:04 Troponin T < 0.010 ng/mL (0.00-0.029) 01/16/18 16:04 NT-Pro-B Natriuret Pep 59.64 pg/mL (0-900) 01/16/18 16:04 Total Protein 7.6 g/dL (6.3-8.2) 01/16/18 16:04 Albumin 3.9 g/dL (3.9-5) 01/16/18 16:04 Albumin/Globulin Ratio 1.1 % 01/16/18 16:04 <EDY PARISI M - Last Filed: 01/18/18 07:22> Assessment and Plan Assessment and plan: I saw and evaluated the patient. I agree with the findings and the plan of care as documented in the Nurse Practitioner's~note, with the following corrections and additions. GI consult placed, patient failed swallow evaluation. Hospitalist Physical - Constitutional Vitals: Temp Pulse Resp BP Pulse Ox 97.9 F 112 H 16 139/70 97 01/18/18 07:09 01/18/18 07:09 01/18/18 07:09 01/18/18 07:09 01/18/18 07:09 Results - Labs CBC & Chem 7: 01/16/18 16:04 01/16/18 16:04 Labs: Laboratory Last Values WBC 8.6 K/mm3 (4.5-11.0) 01/16/18 16:04 RBC 5.16 M/mm3 (3.65-5.03) H 01/16/18 16:04 Hgb 13.0 gm/dl (10.1-14.3) 01/16/18 16:04 Hct 40.3 % (30.3-42.9) 01/16/18 16:04 MCV 78 fl (79-97) L 01/16/18 16:04 MCH 25 pg (28-32) L 01/16/18 16:04 MCHC 32 % (30-34) 01/16/18 16:04 RDW 15.5 % (13.2-15.2) H 01/16/18 16:04 Plt Count 426 K/mm3 (140-440) 01/16/18 16:04 Lymph % (Auto) 10.4 % (13.4-35.0) L 01/16/18 16:04 [place] % (Auto) 6.0 % (0.0-7.3) 01/16/18 16:04 Eos % (Auto) 0.7 % (0.0-4.3) 01/16/18 16:04 Baso % (Auto) 0.2 % (0.0-1.8) 01/16/18 16:04 Lymph # 0.9 K/mm3 (1.2-5.4) L 01/16/18 16:04 [place] # 0.5 K/mm3 (0.0-0.8) 01/16/18 16:04 Eos # 0.1 K/mm3 (0.0-0.4) 01/16/18 16:04 Baso # 0.0 K/mm3 (0.0-0.1) 01/16/18 16:04 Seg Neutrophils % 82.7 % (40.0-70.0) H 01/16/18 16:04 Seg Neutrophils # 7.1 K/mm3 (1.8-7.7) 01/16/18 16:04 PT 13.4 Sec. (12.2-14.9) 01/16/18 16:04 INR 0.97 (0.87-1.13) 01/16/18 16:04 APTT 22.4 Sec. (24.2-36.6) L 01/16/18 16:04 VBG pH 7.416 (7.320-7.420) 01/16/18 16:04 Sodium 134 mmol/L (137-145) L 01/16/18 16:04 Potassium 3.9 mmol/L (3.6-5.0) 01/16/18 16:04 Chloride 89.7 mmol/L (98-107) L 01/16/18 16:04 Carbon Dioxide 24 mmol/L (22-30) 01/16/18 16:04 Anion Gap 24 mmol/L 01/16/18 16:04 BUN 20 mg/dL (7-17) H 01/16/18 16:04 Creatinine 0.5 mg/dL (0.7-1.2) L 01/16/18 16:04 Estimated GFR > 60 ml/min 01/16/18 16:04 BUN/Creatinine Ratio 40 % 01/16/18 16:04 Glucose 99 mg/dL (65-100) 01/16/18 16:04 Lactic Acid 1.50 mmol/L (0.7-2.0) 01/16/18 16:04 Calcium 9.9 mg/dL (8.4-10.2) 01/16/18 16:04 Total Bilirubin 0.50 mg/dL (0.1-1.2) 01/16/18 16:04 AST 31 units/L (5-40) 01/16/18 16:04 ALT 21 units/L (7-56) 01/16/18 16:04 Alkaline Phosphatase 76 units/L (35-129) 01/16/18 16:04 Total Creatine Kinase 127 units/L (30-135) 01/16/18 16:04 CK-MB (CK-2) 2.9 ng/mL (0.0-4.0) 01/16/18 16:04 CK-MB (CK-2) Rel Index 2.2 (0-4) 01/16/18 16:04 Troponin T < 0.010 ng/mL (0.00-0.029) 01/16/18 16:04 NT-Pro-B Natriuret Pep 59.64 pg/mL (0-900) 01/16/18 16:04 Total Protein 7.6 g/dL (6.3-8.2) 01/16/18 16:04 Albumin 3.9 g/dL (3.9-5) 01/16/18 16:04 Albumin/Globulin Ratio 1.1 % 01/16/18 16:04
[2018-01-17] MEDS ORDERED: GUAIFENESIN DM SYRUP PO PRN (12:04)
[2018-01-17] MEDS: PROTONIX PO SCH (12:39)
[2018-01-17] MEDS: PROVENTIL IH SCH ×2 (16:29→20:51)
[2018-01-17] MEDS: D5/0.45NS 1,000 ML IV SCH (16:31)
[2018-01-18] MEDS: PROVENTIL IH SCH ×6 (00:42→19:35)
[2018-01-18] MEDS: LEVAQUIN 750MG/150ML 750 MG/150 ML BAG IV SCH (09:31)
[2018-01-18] MEDS: PROTONIX PO SCH (09:31)
[2018-01-18] MEDS: SODIUM CHLORIDE FLUSH SYRINGE 10 ML IV SCH ×2 (09:32→23:45)
--- NOTE | 2018-01-18 10:16 | Progress Note ---
Assessment and Plan Assessment and plan: 72 YO Female with Breast Cancer S/P Bilateral Mastectomy presents to ED for evaluation. Pt states that she has experienced productive cough and shortness of breath for the past 3 weeks, with worsening symptoms over the past 2 days. Pneumonia Continue IV Antibiotics, supplemental oxygen as needed, follow blood cultures, aspiration precautions, continue nebulizer therapy every 4 hours Dysphagia GI following, Failed MBS, TPN for now per GI team, MRI for CVA workup rec by oncol Breast cancer Supportive care, outpatient Oncology F/U DVT prophylaxis SCD to BLE while in bed History Interval history: Patient seen and examined with at bedside. She's still coughing, very weak cough, productive of clear phlegm. I reviewed her labs and nursing notes. Hospitalist Physical - Physical exam Narrative exam: General appearance: Present: No acute distress, well-nourished - EENT Eyes: Present: PERRL, EOM intact ENT: hearing intact, clear oral mucosa - Neck Present: supple, normal ROM - Respiratory Respiratory effort: normal Respiratory: bilateral: Rhonchi - Cardiovascular Rhythm: regular Heart Sounds: Present: S1 & S2 - Extremities Extremities: no ischemia, No edema - Abdominal General gastrointestinal: soft, non-tender, non-distended - Integumentary Integumentary: Present: clear, warm, dry - Psychiatric Psychiatric: appropriate mood/affect, intact judgment & insight, cooperative - Neurologic Neurologic: CNII-XII intact, moves all extremities - Constitutional Vitals: Temp Pulse Resp BP Pulse Ox 97.9 F 123 H 20 139/70 100 01/18/18 07:09 01/18/18 09:01 01/18/18 09:01 01/18/18 07:09 01/18/18 08:51 Results - Labs CBC & Chem 7: 01/16/18 16:04 01/16/18 16:04 Labs: Laboratory Last Values WBC 8.6 K/mm3 (4.5-11.0) 01/16/18 16:04 RBC 5.16 M/mm3 (3.65-5.03) H 01/16/18 16:04 Hgb 13.0 gm/dl (10.1-14.3) 01/16/18 16:04 Hct 40.3 % (30.3-42.9) 01/16/18 16:04 MCV 78 fl (79-97) L 01/16/18 16:04 MCH 25 pg (28-32) L 01/16/18 16:04 MCHC 32 % (30-34) 01/16/18 16:04 RDW 15.5 % (13.2-15.2) H 01/16/18 16:04 Plt Count 426 K/mm3 (140-440) 01/16/18 16:04 Lymph % (Auto) 10.4 % (13.4-35.0) L 01/16/18 16:04 [place] % (Auto) 6.0 % (0.0-7.3) 01/16/18 16:04 Eos % (Auto) 0.7 % (0.0-4.3) 01/16/18 16:04 Baso % (Auto) 0.2 % (0.0-1.8) 01/16/18 16:04 Lymph # 0.9 K/mm3 (1.2-5.4) L 01/16/18 16:04 [place] # 0.5 K/mm3 (0.0-0.8) 01/16/18 16:04 Eos # 0.1 K/mm3 (0.0-0.4) 01/16/18 16:04 Baso # 0.0 K/mm3 (0.0-0.1) 01/16/18 16:04 Seg Neutrophils % 82.7 % (40.0-70.0) H 01/16/18 16:04 Seg Neutrophils # 7.1 K/mm3 (1.8-7.7) 01/16/18 16:04 PT 13.4 Sec. (12.2-14.9) 01/16/18 16:04 INR 0.97 (0.87-1.13) 01/16/18 16:04 APTT 22.4 Sec. (24.2-36.6) L 01/16/18 16:04 VBG pH 7.416 (7.320-7.420) 01/16/18 16:04 Sodium 134 mmol/L (137-145) L 01/16/18 16:04 Potassium 3.9 mmol/L (3.6-5.0) 01/16/18 16:04 Chloride 89.7 mmol/L (98-107) L 01/16/18 16:04 Carbon Dioxide 24 mmol/L (22-30) 01/16/18 16:04 Anion Gap 24 mmol/L 01/16/18 16:04 BUN 20 mg/dL (7-17) H 01/16/18 16:04 Creatinine 0.5 mg/dL (0.7-1.2) L 01/16/18 16:04 Estimated GFR > 60 ml/min 01/16/18 16:04 BUN/Creatinine Ratio 40 % 01/16/18 16:04 Glucose 99 mg/dL (65-100) 01/16/18 16:04 Lactic Acid 1.50 mmol/L (0.7-2.0) 01/16/18 16:04 Calcium 9.9 mg/dL (8.4-10.2) 01/16/18 16:04 Total Bilirubin 0.50 mg/dL (0.1-1.2) 01/16/18 16:04 AST 31 units/L (5-40) 01/16/18 16:04 ALT 21 units/L (7-56) 01/16/18 16:04 Alkaline Phosphatase 76 units/L (35-129) 01/16/18 16:04 Total Creatine Kinase 127 units/L (30-135) 01/16/18 16:04 CK-MB (CK-2) 2.9 ng/mL (0.0-4.0) 01/16/18 16:04 CK-MB (CK-2) Rel Index 2.2 (0-4) 01/16/18 16:04 Troponin T < 0.010 ng/mL (0.00-0.029) 01/16/18 16:04 NT-Pro-B Natriuret Pep 59.64 pg/mL (0-900) 01/16/18 16:04 Total Protein 7.6 g/dL (6.3-8.2) 01/16/18 16:04 Albumin 3.9 g/dL (3.9-5) 01/16/18 16:04 Albumin/Globulin Ratio 1.1 % 01/16/18 16:04
--- NOTE | 2018-01-18 10:40 | Gastroenterology Consultation ---
History of Present Illness - Reason for Consult Consult date: 01/18/18 dysphagia Requesting physician: EDY PARISI - History of Present Illness Patient is a 72 y/o female with PMH of breast cancer (s/p bilateral mastectomy 10/2017 with adjuvant chemo) who was admitted for pneumonia with acute respiratory failure. GI has been consulted for dysphagia. This morning pt was resting in bed with c/o a continued cough and mild SOB. Currently receiving O2 via NC. Respirations unlabored with no acute distress. She admits to dysphagia with solids and occasional liquids for the last couple of weeks with an associated wt loss of approximately 9-10lbs. Denies CP, odynophagia, heartburn, regurgitation, abd pain, N/V, or LGI symptoms. No previous EGD. No Fhx of GI cancers. Past History Past Medical History: cancer Past Surgical History: mastectomy Social history: . denies: smoking, alcohol abuse, prescription drug abuse Family history: no significant family history (reviewed) Medications and Allergies Allergies Allergy/AdvReac Type Severity Reaction Status Date / Time Penicillins AdvReac Unknown Hives Verified 01/16/18 18:24 codeine AdvReac Vomiting,NA Verified 01/16/18 14:27 USEA Home Medications Medication Instructions Recorded Confirmed Last Taken Type No Known Home Medications [No 01/16/18 01/16/18 Unknown History Reported Home Medications] Active Meds: Active Medications Acetaminophen (Tylenol) 650 mg PO Q4H PRN PRN Reason: Pain MILD(1-3)/Fever >100.5/VALLECILLO Albuterol (Proventil) 2.5 mg IH Q4HRT FAWAD Last Admin: 01/18/18 08:52 Dose: 2.5 mg Guaifenesin (Guaifenesin Dm Syrup) 10 ml PO Q4H PRN PRN Reason: Cough Hydrocodone Bit/Homatropine Methylb (Hydromet) 10 ml PO Q6H PRN PRN Reason: Cough Levofloxacin/Dextrose (Levaquin 750mg/150ml) 750 mg in 150 mls @ 100 mls/hr IV Q24HR FAWAD; Protocol Last Admin: 01/18/18 09:31 Dose: 100 mls/hr Dextrose/Sodium Chloride (D5/0.45ns) 1,000 mls @ 100 mls/hr IV DIRECT FAWAD Last Admin: 01/17/18 16:31 Dose: 100 mls/hr Ondansetron HCl (Zofran) 4 mg IV Q8H PRN PRN Reason: Nausea And Vomiting Pantoprazole Sodium (Protonix) 40 mg PO QDAY [facility] Last Admin: 01/18/18 09:31 Dose: Not Given Sodium Chloride (Sodium Chloride Flush Syringe 10 Ml) 10 ml IV BID [facility] Last Admin: 01/18/18 09:32 Dose: Not Given Sodium Chloride (Sodium Chloride Flush Syringe 10 Ml) 10 ml IV PRN PRN PRN Reason: LINE FLUSH Review of Systems - Review of Systems All systems: negative Gastrointestinal: other (dysphagia) Exam - Constitutional Vital Signs: Temp Pulse Resp BP Pulse Ox 97.9 F 123 H 20 139/70 100 01/18/18 07:09 01/18/18 09:01 01/18/18 09:01 01/18/18 07:09 01/18/18 08:51 General appearance: no acute distress - EENT Eyes: PERRL, EOM intact ENT: hearing intact - Neck Neck: supple, normal ROM - Respiratory Respiratory: bilateral: rhonchi - Cardiovascular Rhythm: other (tachycardia) Heart Sounds: Present: S1 & S2 - Gastrointestinal General gastrointestinal: Present: soft, non-tender, non-distended, normal bowel sounds - Neurologic Neurological: alert and oriented x3 - Labs CBC & Chem 7: 01/16/18 16:04 01/16/18 16:04 Assessment and Plan 1.dysphagia -etiology unclear -speech following with MBS pending for today -will consider EGD based on results, once pt's respiratory status is improved -continue supportive care -will follow
--- NOTE | 2018-01-18 10:47 | Fluoroscopy Report ---
Modified barium swallow with video fluoroscopy: History: Dysphagia. Findings: Severe cervical spondylosis. Transit of liquid and semisolid was delayed in the pharynx with suspected minimal aspiration. No anatomic obstruction. Additional information will be provided by speech therapist. Impression: Findings as detailed above.
[2018-01-18] MEDS: DECADRON IV SCH ×2 (14:36→23:44)
[2018-01-18 17:16] LABS: Alanine Aminotransferase 23 units/L (7-56); Albumin 3.7 g/dL (3.9-5); BUN/Creatinine Ratio 30; Blood Urea Nitrogen 12 mg/dL (7-17); Calcium 9.6 mg/dL (8.4-10.2); Hemolysis Index 2
[2018-01-18] MEDS: D5/0.45NS 1,000 ML IV SCH (23:45)
[2018-01-19] MEDS ORDERED: NACL ONE (00:41)
[2018-01-19] MEDS: PROVENTIL IH SCH ×7 (00:41→23:13)
[2018-01-19] MEDS: DECADRON IV SCH ×3 (05:24→21:08)
[2018-01-19] MEDS: SODIUM CHLORIDE FLUSH SYRINGE 10 ML IV SCH ×2 (09:49→21:08)
[2018-01-19 10:32] LABS: BUN/Creatinine Ratio 25; Blood Urea Nitrogen 10 mg/dL (7-17); Calcium 9.7 mg/dL (8.4-10.2); Hemolysis Index 4
[2018-01-19] MEDS: PROTONIX PO SCH (10:51)
[2018-01-19] MEDS: LEVAQUIN 750MG/150ML 750 MG/150 ML BAG IV SCH (11:00)
--- NOTE | 2018-01-19 11:09 | Gastroenterology Progress Note ---
Assessment and Plan GI: pt w/ h/o breast cancer now w/ dysphagia and dysphonia - awaiting MRI brain to r/o metastatic disease - possible paraneoplastic syndrome - continue syeroids at this time, d/c based on progress and MRI results - continue NPO and IV nutrition - consider PEG based on above - will follow Subjective Date of service: 01/19/18 Interval history: - reports some improved shortness of breath. Reports still w problems swallowing Objective - Constitutional Vitals: Temp Pulse Resp BP Pulse Ox 98.7 F 98 H 18 119/71 100 01/19/18 07:25 01/19/18 09:46 01/19/18 09:46 01/19/18 07:25 01/19/18 09:45 General appearance: no acute distress - EENT Eyes: PERRL - Respiratory Respiratory: bilateral: CTA - Gastrointestinal General gastrointestinal: Present: soft, non-tender, non-distended - Labs CBC & Chem 7: 01/16/18 16:04 01/19/18 09:15 Labs: Laboratory Results - last 24 hr 01/18/18 01/18/18 01/19/18 16:23 16:23 09:15 Sodium 140 137 Potassium 3.3 L 3.5 L Chloride 96.7 L 93.3 L Carbon Dioxide 29 28 Anion Gap 18 19 BUN 12 10 Creatinine 0.4 L 0.4 L Estimated GFR > 60 > 60 BUN/Creatinine Ratio 30 25 Glucose 156 H 139 H Calcium 9.6 9.7 Total Bilirubin 0.40 AST 30 ALT 23 Alkaline Phosphatase 69 Total Protein 7.0 Albumin 3.7 L Albumin/Globulin Ratio 1.1 TSH 2.070
--- NOTE | 2018-01-19 13:33 | Progress Note ---
Assessment and Plan Assessment and plan: 72 YO Female with Breast Cancer S/P Bilateral Mastectomy presents to ED for evaluation. Pt states that she has experienced productive cough and shortness of breath for the past 3 weeks, with worsening symptoms over the past 2 days. Patient has difficulty of swallowing. Bilateral Pneumonia - Chest x-ray showed bilateral infiltrates - Patient is on IV antibiotic, oxygen support, breathing treatment Dysphagia - Patient failed swallow evaluation - MRI head ordered to evaluate for possible brain metastases, reading is pending - patient is NPO, on IV fluids - GI consult appreciated Breast cancer -Supportive care, outpatient Oncology F/U DVT prophylaxis - lovenox History Interval history: Patient was seen and evaluated this morning, patient still has cough and dysphonia, no fever chills. Hospitalist Physical - Physical exam Narrative exam: Not in cardiopulmonary distress. The patient appeared well nourished and normally developed. Vital signs as documented. Head exam is unremarkable. No scleral icterus . Neck is without jugular venous distension, thyromegaly, or carotid bruits. Lungs are clear to auscultation. Cardiac exam reveals regular rate and Rhythm. First and second heart sounds normal. No murmurs, rubs or gallops. Abdominal exam reveals normal bowel sounds, no masses, no organomegaly and no aortic enlargement. Extremities are nonedematous and both femoral and pedal pulses are normal. FLOOR GRINDER: Alert and oriented 3. No focal weakness. - Constitutional Vitals: Temp Pulse Resp BP Pulse Ox 98.7 F 94 H 24 119/71 100 01/19/18 07:25 01/19/18 10:00 01/19/18 10:00 01/19/18 07:25 01/19/18 09:45 General appearance: Present: mild distress Results - Labs CBC & Chem 7: 01/16/18 16:04 01/19/18 09:15 Labs: Laboratory Last Values WBC 8.6 K/mm3 (4.5-11.0) 01/16/18 16:04 RBC 5.16 M/mm3 (3.65-5.03) H 01/16/18 16:04 Hgb 13.0 gm/dl (10.1-14.3) 01/16/18 16:04 Hct 40.3 % (30.3-42.9) 01/16/18 16:04 MCV 78 fl (79-97) L 01/16/18 16:04 MCH 25 pg (28-32) L 01/16/18 16:04 MCHC 32 % (30-34) 01/16/18 16:04 RDW 15.5 % (13.2-15.2) H 01/16/18 16:04 Plt Count 426 K/mm3 (140-440) 01/16/18 16:04 Lymph % (Auto) 10.4 % (13.4-35.0) L 01/16/18 16:04 [place] % (Auto) 6.0 % (0.0-7.3) 01/16/18 16:04 Eos % (Auto) 0.7 % (0.0-4.3) 01/16/18 16:04 Baso % (Auto) 0.2 % (0.0-1.8) 01/16/18 16:04 Lymph # 0.9 K/mm3 (1.2-5.4) L 01/16/18 16:04 [place] # 0.5 K/mm3 (0.0-0.8) 01/16/18 16:04 Eos # 0.1 K/mm3 (0.0-0.4) 01/16/18 16:04 Baso # 0.0 K/mm3 (0.0-0.1) 01/16/18 16:04 Seg Neutrophils % 82.7 % (40.0-70.0) H 01/16/18 16:04 Seg Neutrophils # 7.1 K/mm3 (1.8-7.7) 01/16/18 16:04 PT 13.4 Sec. (12.2-14.9) 01/16/18 16:04 INR 0.97 (0.87-1.13) 01/16/18 16:04 APTT 22.4 Sec. (24.2-36.6) L 01/16/18 16:04 VBG pH 7.416 (7.320-7.420) 01/16/18 16:04 Sodium 137 mmol/L (137-145) 01/19/18 09:15 Potassium 3.5 mmol/L (3.6-5.0) L 01/19/18 09:15 Chloride 93.3 mmol/L (98-107) L 01/19/18 09:15 Carbon Dioxide 28 mmol/L (22-30) 01/19/18 09:15 Anion Gap 19 mmol/L 01/19/18 09:15 BUN 10 mg/dL (7-17) 01/19/18 09:15 Creatinine 0.4 mg/dL (0.7-1.2) L 01/19/18 09:15 Estimated GFR > 60 ml/min 01/19/18 09:15 BUN/Creatinine Ratio 25 % 01/19/18 09:15 Glucose 139 mg/dL (65-100) H 01/19/18 09:15 Lactic Acid 1.50 mmol/L (0.7-2.0) 01/16/18 16:04 Calcium 9.7 mg/dL (8.4-10.2) 01/19/18 09:15 Total Bilirubin 0.40 mg/dL (0.1-1.2) 01/18/18 16:23 AST 30 units/L (5-40) 01/18/18 16:23 ALT 23 units/L (7-56) 01/18/18 16:23 Alkaline Phosphatase 69 units/L (35-129) 01/18/18 16:23 Total Creatine Kinase 127 units/L (30-135) 01/16/18 16:04 CK-MB (CK-2) 2.9 ng/mL (0.0-4.0) 01/16/18 16:04 CK-MB (CK-2) Rel Index 2.2 (0-4) 01/16/18 16:04 Troponin T < 0.010 ng/mL (0.00-0.029) 01/16/18 16:04 NT-Pro-B Natriuret Pep 59.64 pg/mL (0-900) 01/16/18 16:04 Total Protein 7.0 g/dL (6.3-8.2) 01/18/18 16:23 Albumin 3.7 g/dL (3.9-5) L 01/18/18 16:23 Albumin/Globulin Ratio 1.1 % 01/18/18 16:23 TSH 2.070 mlU/mL (0.270-4.200) 01/18/18 16:23
--- NOTE | 2018-01-19 14:37 | Magnetic Resonance Report ---
FINAL REPORT EXAM: MR BRAIN WO/W CON HISTORY: possible brain lesions TECHNIQUE: Multiplanar multisequence brain MR imaging before and after IV contrast. PRIORS: None. FINDINGS: Nonspecific irregularly marginated lesion is noted in the inferior posterior aspect of the right cerebellar hemisphere. It appears to be intra-axial. It is T1 and T2 isointense with brain. It heterogeneously enhances with IV contrast. On postcontrast images, lesion size is 18 x 32 mm in the axial plane. Sagittal dimension is 18 mm. There is vasogenic edema in the adjacent right cerebellar hemisphere. The included air filled sinuses contain no acute fluid level. The brain is without hemorrhage or acute infarct. There are no areas of brain restricted diffusion to suggest an acute ischemic infarct. There is no midline shift. The ventricles and sulci are age-appropriate. IMPRESSION: Nonspecific mass in right cerebellar hemisphere with adjacent vasogenic edema may be a primary brain neoplasm. Differential includes a metastatic lesion in the appropriate clinical setting. No definite restricted diffusion to suggest infarct
[2018-01-19] MEDS: KCL 10MEQ/100ML 10 MEQ/100 ML BAG IV SCH ×3 (14:50→23:13)
[2018-01-19] MEDS: [UNRECOGNIZED DRUG - OTHER] IV SCH (21:08)
[2018-01-19] MEDS: DEXTROSE IV SCH (21:08)
[2018-01-19] MEDS: LOVENOX SUB-Q SCH (21:09)
[2018-01-20] MEDS: PROVENTIL IH SCH ×5 (04:35→20:00)
[2018-01-20] MEDS: DECADRON IV SCH ×3 (05:53→21:03)
[2018-01-20 06:09] LABS: Hematocrit 36.2 % (30.3-42.9); Hemoglobin 11.9 gm/dl (10.1-14.3); Mean Corpuscular HGB Conc 33 % (30-34); Mean Corpuscular Volume 77 fl (79-97); Platelet Count 328 K/mm3 (140-440); Red Blood Count 4.69 M/mm3 (3.65-5.03); Red Cell Distribution Width 15.6 % (13.2-15.2)
[2018-01-20 06:33] LABS: Mean Corpuscular Hemoglobin 25 pg (28-32)
[2018-01-20 06:40] LABS: BUN/Creatinine Ratio 30; Blood Urea Nitrogen 12 mg/dL (7-17); Calcium 9.5 mg/dL (8.4-10.2); Hemolysis Index 0
[2018-01-20 06:49] LABS: Basophils % (Manual) 0 % (0.0-1.8); Eosinophils % (Manual) 0 % (0.0-4.3); Total Cells Counted 100
[2018-01-20 06:52] LABS: Target Cells Rare
[2018-01-20 06:53] LABS: Platelet Estimate Consistent w Auto
[2018-01-20] MEDS: LEVAQUIN 750MG/150ML 750 MG/150 ML BAG IV SCH (09:34)
[2018-01-20] MEDS: SODIUM CHLORIDE FLUSH SYRINGE 10 ML IV SCH ×2 (09:34→21:04)
[2018-01-20] MEDS: PROTONIX PO SCH (09:35)
[2018-01-20] MEDS: [UNRECOGNIZED DRUG - OTHER] IV SCH (09:43)
[2018-01-20] MEDS: DEXTROSE IV SCH (09:43)
--- NOTE | 2018-01-20 12:13 | Progress Note ---
Assessment and Plan Assessment and plan: 72 YO Female with Breast Cancer S/P Bilateral Mastectomy presents to ED for evaluation. Pt states that she has experienced productive cough and shortness of breath for the past 3 weeks, with worsening symptoms over the past 2 days. Patient has difficulty of swallowing. Bilateral Pneumonia - Chest x-ray showed bilateral infiltrates - Patient is on IV antibiotic, oxygen support, breathing treatment Brain mass, primary Vs metastases - MRI showed edema in the right cerebellar hemisphere - Oncology consult placed Dysphagia due to brain mass - Patient failed swallow evaluation - patient is NPO, on IV fluids - GI consult appreciated Breast cancer -Supportive care, outpatient Oncology F/U DVT prophylaxis - lovenox History Interval history: Patient was seen and evaluated this morning, patient has a lot of cough and sputum production, patient has difficulty with expectorating phlegm. Hospitalist Physical - Physical exam Narrative exam: Not in cardiopulmonary distress. The patient appeared well nourished and normally developed. Vital signs as documented. Head exam is unremarkable. No scleral icterus . Neck is without jugular venous distension, thyromegaly, or carotid bruits. Lungs are clear to auscultation. Cardiac exam reveals regular rate and Rhythm. First and second heart sounds normal. No murmurs, rubs or gallops. Abdominal exam reveals normal bowel sounds, no masses, no organomegaly and no aortic enlargement. Extremities are nonedematous and both femoral and pedal pulses are normal. TRUCK CHAUFFEUR: Alert and oriented 3. No focal weakness. - Constitutional Vitals: Temp Pulse Resp BP Pulse Ox 97.5 F L 104 H 24 122/64 100 01/20/18 07:34 01/20/18 10:54 01/20/18 10:00 01/20/18 07:34 01/20/18 10:00 General appearance: Present: mild distress Results - Labs CBC & Chem 7: 01/20/18 Unknown 01/20/18 Unknown Labs: Laboratory Last Values WBC 11.6 K/mm3 (4.5-11.0) H 01/20/18 Unknown RBC 4.69 M/mm3 (3.65-5.03) 01/20/18 Unknown Hgb 11.9 gm/dl (10.1-14.3) 01/20/18 Unknown Hct 36.2 % (30.3-42.9) 01/20/18 Unknown MCV 77 fl (79-97) L 01/20/18 Unknown MCH 25 pg (28-32) L 01/20/18 Unknown MCHC 33 % (30-34) 01/20/18 Unknown RDW 15.6 % (13.2-15.2) H 01/20/18 Unknown Plt Count 328 K/mm3 (140-440) 01/20/18 Unknown Lymph % (Auto) 10.4 % (13.4-35.0) L 01/16/18 16:04 [place] % (Auto) 6.0 % (0.0-7.3) 01/16/18 16:04 Eos % (Auto) 0.7 % (0.0-4.3) 01/16/18 16:04 Baso % (Auto) 0.2 % (0.0-1.8) 01/16/18 16:04 Lymph # 0.9 K/mm3 (1.2-5.4) L 01/16/18 16:04 [place] # 0.5 K/mm3 (0.0-0.8) 01/16/18 16:04 Eos # 0.1 K/mm3 (0.0-0.4) 01/16/18 16:04 Baso # 0.0 K/mm3 (0.0-0.1) 01/16/18 16:04 Add Manual Diff Complete 01/20/18 Unknown Total Counted 100 01/20/18 Unknown Seg Neutrophils % Building Consultant 01/20/18 Unknown Seg Neuts % (Manual) 93.0 % (40.0-70.0) H 01/20/18 Unknown Band Neutrophils % 0 % 01/20/18 Unknown Lymphocytes % (Manual) 4.0 % (13.4-35.0) L 01/20/18 Unknown Reactive Lymphs % (Man) 0 % 01/20/18 Unknown Monocytes % (Manual) 3.0 % (0.0-7.3) 01/20/18 Unknown Eosinophils % (Manual) 0 % (0.0-4.3) 01/20/18 Unknown Basophils % (Manual) 0 % (0.0-1.8) 01/20/18 Unknown Metamyelocytes % 0 % 01/20/18 Unknown Myelocytes % 0 % 01/20/18 Unknown Promyelocytes % 0 % 01/20/18 Unknown Blast Cells % 0 % 01/20/18 Unknown Nucleated RBC % Not Reportable 01/20/18 Unknown Seg Neutrophils # 7.1 K/mm3 (1.8-7.7) 01/16/18 16:04 Seg Neutrophils # Man 10.8 K/mm3 (1.8-7.7) H 01/20/18 Unknown Band Neutrophils # 0.0 K/mm3 01/20/18 Unknown Lymphocytes # (Manual) 0.5 K/mm3 (1.2-5.4) L 01/20/18 Unknown Abs React Lymphs (Man) 0.0 K/mm3 01/20/18 Unknown Monocytes # (Manual) 0.3 K/mm3 (0.0-0.8) 01/20/18 Unknown Eosinophils # (Manual) 0.0 K/mm3 (0.0-0.4) 01/20/18 Unknown Basophils # (Manual) 0.0 K/mm3 (0.0-0.1) 01/20/18 Unknown Metamyelocytes # 0.0 K/mm3 01/20/18 Unknown Myelocytes # 0.0 K/mm3 01/20/18 Unknown Promyelocytes # 0.0 K/mm3 01/20/18 Unknown Blast Cells # 0.0 K/mm3 01/20/18 Unknown WBC Morphology Not Reportable 01/20/18 Unknown Hypersegmented Neuts Not Reportable 01/20/18 Unknown Hyposegmented Neuts Not Reportable 01/20/18 Unknown Hypogranular Neuts Not Reportable 01/20/18 Unknown Smudge Cells Not Reportable 01/20/18 Unknown Toxic Granulation Not Reportable 01/20/18 Unknown Toxic Vacuolation Not Reportable 01/20/18 Unknown Dohle Bodies Not Reportable 01/20/18 Unknown Pelger-Huet Anomaly Not Reportable 01/20/18 Unknown Renetta Rods Not Reportable 01/20/18 Unknown Platelet Estimate Consistent w auto 01/20/18 Unknown Clumped Platelets Not Reportable 01/20/18 Unknown Plt Clumps, EDTA Not Reportable 01/20/18 Unknown Large Platelets Not Reportable 01/20/18 Unknown Giant Platelets Not Reportable 01/20/18 Unknown Platelet Satelliting Not Reportable 01/20/18 Unknown Plt Morphology Comment Not Reportable 01/20/18 Unknown RBC Morphology Not Reportable 01/20/18 Unknown Dimorphic RBCs Not Reportable 01/20/18 Unknown Polychromasia Not Reportable 01/20/18 Unknown Hypochromasia Not Reportable 01/20/18 Unknown Poikilocytosis Not Reportable 01/20/18 Unknown Anisocytosis Not Reportable 01/20/18 Unknown Microcytosis Not Reportable 01/20/18 Unknown Macrocytosis Not Reportable 01/20/18 Unknown Spherocytes Not Reportable 01/20/18 Unknown Pappenheimer Bodies Not Reportable 01/20/18 Unknown Sickle Cells Not Reportable 01/20/18 Unknown Target Cells Rare 01/20/18 Unknown Tear Drop Cells Not Reportable 01/20/18 Unknown Ovalocytes Not Reportable 01/20/18 Unknown Helmet Cells Not Reportable 01/20/18 Unknown Naik-[place] Bodies Not Reportable 01/20/18 Unknown [place] Rings Not Reportable 01/20/18 Unknown Jamila Cells Not Reportable 01/20/18 Unknown Bite Cells Not Reportable 01/20/18 Unknown Crenated Cell Not Reportable 01/20/18 Unknown Elliptocytes Few 01/20/18 Unknown Acanthocytes (Spur) Not Reportable 01/20/18 Unknown Rouleaux Not Reportable 01/20/18 Unknown Hemoglobin C Crystals Not Reportable 01/20/18 Unknown Schistocytes Not Reportable 01/20/18 Unknown Malaria parasites Not Reportable 01/20/18 Unknown [place]onte Bodies Not Reportable 01/20/18 Unknown Hem Pathologist Commnt No 01/20/18 Unknown PT 13.4 Sec. (12.2-14.9) 01/16/18 16:04 INR 0.97 (0.87-1.13) 01/16/18 16:04 APTT 22.4 Sec. (24.2-36.6) L 01/16/18 16:04 VBG pH 7.416 (7.320-7.420) 01/16/18 16:04 Sodium 137 mmol/L (137-145) 01/20/18 Unknown Potassium 3.9 mmol/L (3.6-5.0) 01/20/18 Unknown Chloride 96.7 mmol/L (98-107) L 01/20/18 Unknown Carbon Dioxide 30 mmol/L (22-30) 01/20/18 Unknown Anion Gap 14 mmol/L 01/20/18 Unknown BUN 12 mg/dL (7-17) 01/20/18 Unknown Creatinine 0.4 mg/dL (0.7-1.2) L 01/20/18 Unknown Estimated GFR > 60 ml/min 01/20/18 Unknown BUN/Creatinine Ratio 30 % 01/20/18 Unknown Glucose 135 mg/dL (65-100) H 01/20/18 Unknown Lactic Acid 1.50 mmol/L (0.7-2.0) 01/16/18 16:04 Calcium 9.5 mg/dL (8.4-10.2) 01/20/18 Unknown Phosphorus 3.20 mg/dL (2.5-4.5) 01/20/18 Unknown Magnesium 1.50 mg/dL (1.7-2.3) L 01/20/18 Unknown Total Bilirubin 0.40 mg/dL (0.1-1.2) 01/18/18 16:23 AST 30 units/L (5-40) 01/18/18 16:23 ALT 23 units/L (7-56) 01/18/18 16:23 Alkaline Phosphatase 69 units/L (35-129) 01/18/18 16:23 Total Creatine Kinase 127 units/L (30-135) 01/16/18 16:04 CK-MB (CK-2) 2.9 ng/mL (0.0-4.0) 01/16/18 16:04 CK-MB (CK-2) Rel Index 2.2 (0-4) 01/16/18 16:04 Troponin T < 0.010 ng/mL (0.00-0.029) 01/16/18 16:04 NT-Pro-B Natriuret Pep 59.64 pg/mL (0-900) 01/16/18 16:04 Total Protein 7.0 g/dL (6.3-8.2) 01/18/18 16:23 Albumin 3.7 g/dL (3.9-5) L 01/18/18 16:23 Albumin/Globulin Ratio 1.1 % 01/18/18 16:23 TSH 2.070 mlU/mL (0.270-4.200) 01/18/18 16:23
--- NOTE | 2018-01-20 13:26 | Gastroenterology Progress Note ---
Assessment and Plan GI: h/o breast cancer now w/ brain lesion w/ complaints dysphagia/dysphonia along w/ abnormal speech eval - agree w/ Oncology input - continue IV steroids - will probably need EGD/PEG over next couple days based on Pulm status (await Onc input) - continue NPO, TPN - will follow Subjective Date of service: 01/20/18 Interval history: - reports mild improvement in dysphonia. Denies other complaints Objective - Constitutional Vitals: Temp Pulse Resp BP Pulse Ox 97.5 F L 104 H 24 122/64 100 01/20/18 07:34 01/20/18 10:54 01/20/18 10:00 01/20/18 07:34 01/20/18 10:00 General appearance: no acute distress - EENT Eyes: PERRL - Respiratory Respiratory: bilateral: CTA - Cardiovascular Rhythm: regular Heart Sounds: Present: S1 & S2 - Gastrointestinal General gastrointestinal: Present: soft, non-tender, non-distended - Labs CBC & Chem 7: 01/20/18 Unknown 01/20/18 Unknown Labs: Laboratory Results - last 24 hr 01/20/18 01/20/18 01/20/18 12:09 Unknown Unknown WBC 11.6 H RBC 4.69 Hgb 11.9 Hct 36.2 MCV 77 L MCH 25 L MCHC 33 RDW 15.6 H Plt Count 328 Add Manual Diff Complete Total Counted 100 Seg Neutrophils % Corporate Services Manager Seg Neuts % (Manual) 93.0 H Band Neutrophils % 0 Lymphocytes % (Manual) 4.0 L Reactive Lymphs % (Man) 0 Monocytes % (Manual) 3.0 Eosinophils % (Manual) 0 Basophils % (Manual) 0 Metamyelocytes % 0 Myelocytes % 0 Promyelocytes % 0 Blast Cells % 0 Nucleated RBC % Not Reportable Seg Neutrophils # Man 10.8 H Band Neutrophils # 0.0 Lymphocytes # (Manual) 0.5 L Abs React Lymphs (Man) 0.0 Monocytes # (Manual) 0.3 Eosinophils # (Manual) 0.0 Basophils # (Manual) 0.0 Metamyelocytes # 0.0 Myelocytes # 0.0 Promyelocytes # 0.0 Blast Cells # 0.0 WBC Morphology Not Reportable Hypersegmented Neuts Not Reportable Hyposegmented Neuts Not Reportable Hypogranular Neuts Not Reportable Smudge Cells Not Reportable Toxic Granulation Not Reportable Toxic Vacuolation Not Reportable Dohle Bodies Not Reportable Pelger-Huet Anomaly Not Reportable Renetta Rods Not Reportable Platelet Estimate Consistent w auto Clumped Platelets Not Reportable Plt Clumps, EDTA Not Reportable Large Platelets Not Reportable Giant Platelets Not Reportable Platelet Satelliting Not Reportable Plt Morphology Comment Not Reportable RBC Morphology Not Reportable Dimorphic RBCs Not Reportable Polychromasia Not Reportable Hypochromasia Not Reportable Poikilocytosis Not Reportable Anisocytosis Not Reportable Microcytosis Not Reportable Macrocytosis Not Reportable Spherocytes Not Reportable Pappenheimer Bodies Not Reportable Sickle Cells Not Reportable Target Cells Rare Tear Drop Cells Not Reportable Ovalocytes Not Reportable Helmet Cells Not Reportable Naik-[place] Bodies Not Reportable [place] Rings Not Reportable Jamila Cells Not Reportable Bite Cells Not Reportable Crenated Cell Not Reportable Elliptocytes Few Acanthocytes (Spur) Not Reportable Rouleaux Not Reportable Hemoglobin C Crystals Not Reportable Schistocytes Not Reportable Malaria parasites Not Reportable [place] Bodies Not Reportable Hem Pathologist Commnt No Sodium 137 Potassium 3.9 Chloride 96.7 L Carbon Dioxide 30 Anion Gap 14 BUN 12 Creatinine 0.4 L Estimated GFR > 60 BUN/Creatinine Ratio 30 Glucose 135 H POC Glucose 112 H Calcium 9.5 Phosphorus 3.20 Magnesium 1.50 L
--- NOTE | 2018-01-20 17:50 | Hem/Onc Consultation ---
History of Present Illness - Reason for Consult Consult date: 01/20/18 - History of Present Illness 72 YO Female with Inflammatory Breast Cancer diagnosed in 2017. S/P Bilateral Mastectomy presents to ED for evaluation. Pt states that she has experienced productive cough and shortness of breath for the past 3 weeks, with worsening symptoms over the past 2 days. Pt seen and evaluated by PCP and was found to have evidence of Pneumonia, and was instructed to seek further care and evaluation at [facility]. Pt seen and evaluated in ED and found to have RLL Pneumonia as well as Acute Respiratory Failure. Pt initiated on Pneumonia protocol, as well as supplemental oxygen. Patient was having headaches and lt leg weakness for few weeks. She last saw her oncologist 3-4 weeks ago and was supposed to start radiation to the breast area but had to delay that because she was not feeling well. She saw Dr Eckert once and was to start chest wall radiation soon. Patient reports her last chemo was in September and she had bilateral mastectomies in october. Reports some wt loss over the last few weeks with inability to eat. Past History Past Medical History: cancer Past Surgical History: mastectomy Social history: . denies: smoking, alcohol abuse, prescription drug abuse Family history: no significant family history (reviewed) Medications and Allergies Allergies Allergy/AdvReac Type Severity Reaction Status Date / Time Penicillins AdvReac Unknown Hives Verified 01/16/18 18:24 codeine AdvReac Vomiting,NA Verified 01/16/18 14:27 USEA Home Medications Medication Instructions Recorded Confirmed Last Taken Type No Known Home Medications [No 01/16/18 01/16/18 Unknown History Reported Home Medications] Active Meds: Active Medications Acetaminophen (Tylenol) 650 mg PO Q4H PRN PRN Reason: Pain MILD(1-3)/Fever >100.5/[place] Albuterol (Proventil) 2.5 mg IH Q4HRT [facility] Last Admin: 01/20/18 16:04 Dose: 2.5 mg Dexamethasone (Decadron) 8 mg IV Q8HR [facility] Last Admin: 01/20/18 13:05 Dose: 8 mg Enoxaparin Sodium (Lovenox) 40 mg SUB-Q QDAY@2200 [facility] Last Admin: 01/19/18 21:09 Dose: 40 mg Guaifenesin (Guaifenesin Dm Syrup) 10 ml PO Q4H PRN PRN Reason: Cough Last Admin: 01/18/18 23:45 Dose: 10 ml Hydrocodone Bit/Homatropine Methylb (Hydromet) 10 ml PO Q6H PRN PRN Reason: Cough Last Admin: 01/18/18 23:45 Dose: 10 ml Levofloxacin/Dextrose (Levaquin 750mg/150ml) 750 mg in 150 mls @ 100 mls/hr IV Q24HR [facility]; Protocol Last Admin: 01/20/18 09:34 Dose: 100 mls/hr Dextrose/Sodium Chloride (D5/0.45ns) 3,000 mls @ 100 mls/hr IV DIRECT FAWAD Stop: 01/20/18 19:59 Last Admin: 01/20/18 09:43 Dose: 100 mls/hr Amino Acids/Electrolytes/Dextrose (Tpn Adult) 2,016 mls @ 84 mls/hr IV DAILY@ 1999 [facility]; Protocol Stop: 01/21/18 19:59 Ondansetron HCl (Zofran) 4 mg IV Q8H PRN PRN Reason: Nausea And Vomiting Pantoprazole Sodium (Protonix) 40 mg PO QDAY [facility] Last Admin: 01/20/18 09:35 Dose: Not Given Sodium Chloride (Sodium Chloride Flush Syringe 10 Ml) 10 ml IV BID [facility] Last Admin: 01/20/18 09:34 Dose: 10 ml Sodium Chloride (Sodium Chloride Flush Syringe 10 Ml) 10 ml IV PRN PRN PRN Reason: LINE FLUSH Last Admin: 01/19/18 05:24 Dose: 10 ml Review of Systems All systems: negative Constitutional: weight loss, weakness Neurological: weakness Exam - Constitutional Vitals: Last Vital Signs Temp 98.4 F 01/20/18 13:50 Pulse 108 H 01/20/18 16:16 Resp 18 01/20/18 16:16 BP 137/71 01/20/18 13:52 Pulse Ox 98 01/20/18 16:04 Pain Intensity (0-10): denies any pain General appearance: mild distress - EENT Eyes: PERRL, EOM intact ENT: hearing intact Lymph node exam: bilateral cervical - Respiratory Respiratory: bilateral: CTA (rhonchi all over) - Breasts Breasts: bilateral: other (mastectomies) - Cardiovascular Rhythm: regular Heart Sounds: Present: S1 & S2 Extremities: no ischemia - Gastrointestinal General gastrointestinal: Present: soft, non-distended, normal bowel sounds - Integumentary Integumentary: clear, warm, dry - Neurologic Neurologic: other (poor inspiratory effort- cannot clear secretions) - Psychiatric Psychiatric: appropriate mood/affect Results - Labs lab Results: Laboratory Results - last 24 hr 01/20/18 01/20/18 01/20/18 12:09 Unknown Unknown WBC 11.6 H RBC 4.69 Hgb 11.9 Hct 36.2 MCV 77 L MCH 25 L MCHC 33 RDW 15.6 H Plt Count 328 Add Manual Diff Complete Total Counted 100 Seg Neutrophils % Digital Color Press Operator Seg Neuts % (Manual) 93.0 H Band Neutrophils % 0 Lymphocytes % (Manual) 4.0 L Reactive Lymphs % (Man) 0 Monocytes % (Manual) 3.0 Eosinophils % (Manual) 0 Basophils % (Manual) 0 Metamyelocytes % 0 Myelocytes % 0 Promyelocytes % 0 Blast Cells % 0 Nucleated RBC % Not Reportable Seg Neutrophils # Man 10.8 H Band Neutrophils # 0.0 Lymphocytes # (Manual) 0.5 L Abs React Lymphs (Man) 0.0 Monocytes # (Manual) 0.3 Eosinophils # (Manual) 0.0 Basophils # (Manual) 0.0 Metamyelocytes # 0.0 Myelocytes # 0.0 Promyelocytes # 0.0 Blast Cells # 0.0 WBC Morphology Not Reportable Hypersegmented Neuts Not Reportable Hyposegmented Neuts Not Reportable Hypogranular Neuts Not Reportable Smudge Cells Not Reportable Toxic Granulation Not Reportable Toxic Vacuolation Not Reportable Dohle Bodies Not Reportable Pelger-Huet Anomaly Not Reportable Renetta Rods Not Reportable Platelet Estimate Consistent w auto Clumped Platelets Not Reportable Plt Clumps, EDTA Not Reportable Large Platelets Not Reportable Giant Platelets Not Reportable Platelet Satelliting Not Reportable Plt Morphology Comment Not Reportable RBC Morphology Not Reportable Dimorphic RBCs Not Reportable Polychromasia Not Reportable Hypochromasia Not Reportable Poikilocytosis Not Reportable Anisocytosis Not Reportable Microcytosis Not Reportable Macrocytosis Not Reportable Spherocytes Not Reportable Pappenheimer Bodies Not Reportable Sickle Cells Not Reportable Target Cells Rare Tear Drop Cells Not Reportable Ovalocytes Not Reportable Helmet Cells Not Reportable Naik-Letha Bodies Not Reportable [place] Rings Not Reportable Jamila Cells Not Reportable Bite Cells Not Reportable Crenated Cell Not Reportable Elliptocytes Few Acanthocytes (Spur) Not Reportable Rouleaux Not Reportable Hemoglobin C Crystals Not Reportable Schistocytes Not Reportable Malaria parasites Not Reportable Delonte Bodies Not Reportable Hem Pathologist Commnt No Sodium 137 Potassium 3.9 Chloride 96.7 L Carbon Dioxide 30 Anion Gap 14 BUN 12 Creatinine 0.4 L Estimated GFR > 60 BUN/Creatinine Ratio 30 Glucose 135 H POC Glucose 112 H Calcium 9.5 Phosphorus 3.20 Magnesium 1.50 L - Imaging and cardiology Chest x-ray: report reviewed CT scan - chest: image reviewed MRI - head: report reviewed Assessment and Plan 1- Inflammatory breast cancer patient, s/p neoadjuvant chemotherapy and bilateral mastectomies. last chemo in september. 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 Question metastasis or primary brain tumor. Patient was started on steroids. No neurosurgeon is available at [facility]. She needs surgical evaluation, and transferring her to another hospital for neurosurgery evaluation is appropriate. I spoke with Oncologist covering for Dr Yañez and she was able to pull records that showed her to have metastatic disease to the mediastinum and had near complete response to chemotherapy. She reports that there is no preference regarding which hospital to transfer her to. I discussed with Dr. Barajas and he will arrange transfer tomorrow.
[2018-01-20] MEDS ORDERED: TPN ADULT 2,016 ML IV SCH (20:00)
[2018-01-20] MEDS: LOVENOX SUB-Q SCH (21:03)
[2018-01-21] MEDS: PROVENTIL IH SCH ×5 (00:02→16:29)
[2018-01-21] MEDS: DECADRON IV SCH ×2 (05:15→13:09)
[2018-01-21 05:58] LABS: BUN/Creatinine Ratio 38; Blood Urea Nitrogen 15 mg/dL (7-17); Calcium 9.3 mg/dL (8.4-10.2); Hemolysis Index 1
--- NOTE | 2018-01-21 08:26 | Cat Scan Report ---
FINAL REPORT EXAM: CT ANGIO CHEST HISTORY: dyspnea, tachycardia TECHNIQUE: CT imaging obtained through the chest in pulmonary angiographic phase following intravenous administration of contrast. Transaxial, Coronal and sagittal reformats with maximal intensity projections are provided. PRIORS: 01/12/2016 FINDINGS: Normal caliber main pulmonary artery. Well opacified pulmonary arterial tree. No pulmonary embolism. No pericardial effusion. Thoracic aorta is normal in course and caliber. No periaortic fluid or stranding. Partially imaged right chest port catheter. No pneumothorax or effusion. Right greater than left lower lung bronchial wall thickening and patchy airspace disease are similar to prior. Imaged portion of the upper abdomen is remarkable for a couple of right and left hepatic cysts measuring up to 2.4 cm in greatest individual dimension. The superficial soft tissues are otherwise unremarkable. No acute bony abnormality or worrisome osseous lesions identified. IMPRESSION: No pulmonary embolism or acute aortic finding. Right greater than left lower lung peribronchial thickening and patchy airspace disease are similar to prior.
--- NOTE | 2018-01-21 08:38 | XRay Report ---
AP CHEST: HISTORY: Followup bilateral pneumonia Infiltration throughout the right lower lobe has decreased by 50% since the CT angio chest performed 01/19/18. Trace right pleural effusion could be present. The left lung is clear. Heart and mediastinal structures are within normal limits. Right [id number] remains in good position. IMPRESSION: 50% improvement in the right lower lobe pneumonia.
[2018-01-21] MEDS: SODIUM CHLORIDE FLUSH SYRINGE 10 ML IV SCH (09:07)
[2018-01-21] MEDS: LEVAQUIN 750MG/150ML 750 MG/150 ML BAG IV SCH (09:07)
[2018-01-21] MEDS: PROTONIX PO SCH (09:07)
--- NOTE | 2018-01-21 10:44 | Discharge Summary ---
Providers - Providers Date of Admission: 01/16/18 18:11 Date of discharge: 01/21/18 Attending physician: EDY PARISI MD 01/17/18 07:29 Physical Therapy Evaluation and Treat [CONS] Routine Comment: Weakness in left leg Reason For Exam: Decreased mobility Mode of Transport?: Cane Weight bearing status?: Full wt bearing Assistive devices?: Yes: Uses cane when out of the home 01/17/18 07:30 Occupational Therapy Evaluate and Treat [CONS] Routine Comment: Reason For Exam: Issues with bathing at home 01/17/18 12:05 Consult to Physician [CONS] Routine Comment: SPOKE WITH DEDRA PARRY) Consulting Provider: NANCY SIMMS Physician Instructions: CALLED Reason For Exam: can't keep the food down 01/17/18 12:27 Speech Therapy Evaluation and Treat [CONS] Routine Reason For Exam: swallow eval 01/18/18 13:09 Consult to Dietitian/Nutrition [CONS] Routine Physician Instructions: Reason For Exam: Reason for Consult: Write/Manage TPN/PPN 01/20/18 08:26 Consult to Physician [CONS] Routine Comment: answ. service spoke to adriana @ [phone] Consulting Provider: PRASHANT GARCIA Physician Instructions: Reason For Exam: metastatic brain cancer Primary care physician: BHAVYA BALDERAS Hospitalization Reason for admission: aspiration pneumonia, metastatic brain cancer Condition: Stable Pertinent studies: Chest x-ray right lower lobe infiltrates MRI of the brain right cerebellar mass, 2 cm Barium swallow high risk for aspiration Hospital course: 72-year-old -[place] female with past medical history significant for breast cancer status post bilateral mastectomy, neoadjuvant chemotherapy presented to the emergency department with complaints of cough productive of clear sputum for 2 weeks prior to admission. Patient denied fever, chills. Patient admitted for headache and mild weakness in the left lower extremity. Patient went to her primary care physician and administer his pneumonia and transferred to [facility]. Patient was admitted and treated with IV Levaquin,on IV steroids for vasogenic edema, patient has dysphagia and dysphonia. GI evaluated, patient failed Swallow evaluation and patient is on TPN through the port. MRI of the brain was done showed solitary mass in the right cerebellar area, 3 cm in its largest dimension. Patient was evaluated by hematology oncology and recommended transfer to a facility with neurosurgeon. Patient was hemodynamically stable at time of discharge. Patient transferred to [facility], accepted by Dr. Vaughn, neurosurgeon and Dr. Finn Internal medicine. H&P, progress note and accompanying imaging studies will be send with the patient. Patient's Oncologist is Dr Yañez and PCP is Dr Brito. Disposition: [id number] ANOTHER TYPE [facility] Time spent for discharge: 31 minutes - Discharge Diagnoses (1) Brain malignancy Status: Acute (2) Breast cancer Status: Acute Qualifiers: Laterality: unspecified laterality (3) On total parenteral nutrition Status: Acute (4) Dysphonia Status: Acute (5) Dysphagia Status: Acute Core Measure Documentation - Palliative Care Palliative Care/ Comfort Measures: Not Applicable - Core Measures Any of the following diagnoses?: none Exam - Physical Exam Narrative exam: Not in cardiopulmonary distress. Patient has dysphonia. The patient appeared well nourished and normally developed. Vital signs as documented. Head exam is unremarkable. No scleral icterus . Neck is without jugular venous distension, thyromegaly, or carotid bruits. Lungs are clear to auscultation. Cardiac exam reveals regular rate and Rhythm. First and second heart sounds normal. No murmurs, rubs or gallops. Abdominal exam reveals normal bowel sounds, no masses, no organomegaly and no aortic enlargement. Extremities are nonedematous and both femoral and pedal pulses are normal. APPRENTICE PLUMBER: Alert and oriented 3. Mild left lower extremity weakness. - Constitutional Vitals: Temp Pulse Resp BP Pulse Ox 97.8 F 122 H 20 146/91 99 01/21/18 06:45 01/21/18 10:00 01/21/18 10:00 01/21/18 06:45 01/21/18 10:00 Plan Activity: advance as tolerated Weight Bearing Status: Weight Bear as Tolerated Diet: other (TPN) Follow up with: BHAVYA BALDERAS JR, MD [Primary Care Provider] - 7 Days
[2018-01-21] MEDS ORDERED: DECADRON ONE (13:02)
[2018-01-21 13:46] VITALS: BP 140/80
[2018-01-21] MEDS ORDERED: TPN ADULT 2,016 ML IV SCH (20:00)
[2018-01-21] MEDS ORDERED: INTRALIPID 20% 250 ML IV SCH (20:00)
== END 2018-01-21 19:20 | disposition short-term general hospital (02) | DRG 177 ==
LOC: ED 14:19 → 3A 18:11 → 2B-ACE 20:35
PROVIDERS: ADMIT Internal Medicine; ATTEND Internal Medicine
PROC: 3E0336Z Introduction of Nutritional Substance into Peripheral Vein, Percutaneous Approach (ICD-10-PCS; principal; 2018-01-16)
DX: J69.0 Pneumonitis due to inhalation of food and vomit (principal); G93.6 Cerebral edema; C79.31 Secondary malignant neoplasm of brain; C50.919 Malignant neoplasm of unspecified site of unspecified female breast; R49.0 Dysphonia; R13.10 Dysphagia, unspecified; Z88.0 Allergy status to penicillin; Z90.13 Acquired absence of bilateral breasts and nipples; Z88.5 Allergy status to narcotic agent
CPT/HCPCS: 36415; 70553; 71045; 71275; 74230; 80048; 80053; 82140; 82550; 82553; 82805; 82962; 83735; 83880; 84100; 84443; 84484; 85007; 85025; 85610; 85730; 87040; 93005; 93010; 94640; 94760; 96365; 96375; A9577; G8978-GP; G8979-GP; G8987-GO; G8988-GO; G8996-GN; G8997-GN; J1100; J1650; J1956; J2930; J3480; J7030; Q9967